=== PATIENT | male | born 1930 | race Caucasian/White ===

== ENCOUNTER 2017-08-22 10:02 | Inpatient (IN) | payer OTHER, MEDICARE ==
[~2017-08-22] VITALS: Ht 180.3 cm; Wt 64.9 kg
[~2017-08-22 10:02] MED LIST: A/B OTIC 54 MG/15 ML OTIC; ACTONEL35 MG PO; AUGMENTIN 875-1 EACH PO; CENTRUM SILVER1 TA1 PO; COUMADIN 6 MG TA6 MG PO; COUMADIN3 M1 PO; DESITIN DIAPER28 GM TOP; DOCUSATE SODIU100 M3 PO; FENTANYL1 EAC2 TOP; FENTANYL25 MCG/HR TOP; PRINIVIL20 MG PO; SANTYL30 GM TOP; SENNA-TIME S T1 EACH PO; TYLENOL325 M1 PO; VITAMIN A & D56.7 GM TOP
--- NOTE | 2017-08-22 10:43 | ED GI/GU/ABDOMINAL COMPLAINT ---
History of Present Illness General Chief Complaint: Nausea, Vomiting, Diarrhea Stated Complaint: DIARRHEA X3 DAYS Source: patient, old records Exam Limitations: no limitations Vital Signs & Intake/Output Vital Signs & Intake/Output Vital Signs Date Time Temp Pulse Resp B/P B/P Pulse O2 O2 Flow FiO2 Mean Ox Delivery Rate 08/22 1025 98 Room Air 08/22 1025 98.4 88 18 131/84 98 Room Air Allergies Coded Allergies: codeine (Intermediate, SHAKING 10/29/15) Reconcile Medications Acetaminophen (Tylenol) 325 MG TABLET 650 MG PO Q8P PRN PAIN SCALE 7-10 ( SEVERE) Cod Liver Oil/Zinc Oxide (Desitin Diaper Rash 40% Paste) 28 GM PASTE..G. 1 KRISTA TOP BID Diaper rash Collagenase Clostridium Hist. (Santyl) 30 GM OINT...G. 1 KRISTA TOP ONCE left lower leg ulcer Docusate Sodium 100 MG CAPSULE 100 MG PO BID CONASTIPATION Fentanyl 25 MCG/HR TDM 1 PATCH TOP Q72H PAIN (Reported) Loperamide HCl (Loperamide) 2 MG TABLET 1 TAB PO Q4 DIARRHEA Risedronate Sodium (Actonel) 35 MG TABLET 1 TAB PO QW BONES (Reported) Sennosides/Docusate Sodium (Senna-Time S Tablet) 8.6 MG-50 MG TABLET 187 MG PO AT BEDTIME PRN CONSTIPATION Vitamin A & D (Vitamin A & D Ointment) 56.7 GM OINT...G. 1 KRISTA TOP BID Diaper rash Warfarin Sodium (Coumadin) 3 MG TABLET 1 TAB PO DAILY POST OP AND AFIB ( Reported) INR BETWEEN 2-3 Triage Note: 87M BIBA FOR LOOSE STOOL X2 DAYS. PT LIVES AT HOME AND HAS VNS. CALLED PMD DR PALOMINO WHO HE BELIEVES SAID TO TAKE MOTRIN (LIKELY IMMODIUM LOOK ALIKE SOUND ALIKE MED) AND STOOLS CONTINUED. HE WAS INCONTINENT AT HOME AND ARRIVES WITH DRIED DIARRHEA DOWN LEGS AND FEET. HAS LEFT LATERAL LOWER LEG WOUND THAT HE SEES DR HOLLIDAY FOR (WOUND X30 YEARS) THAT VN COVER WITH HONEY AND GAUZE. CLEANED AT TIME OF ARRIVAL, MEASURES APPROX [id number] AND INDURATED 2MM. XEROFORM APPLIED WITH DRESSING CHANGE. PT DENIES ANY PAIN OR ABDOMINAL CRAMPING OR N/V AT THIS TIME. DENIES RECTAL PAIN. PT HAS SIGNIFICANT SCROTAL SWELLING THAT IS TENDER TO PALPATION, PT IS UNSURE IF IT IS DIFFERENT IN SIZE FROM BASELINE. NO LESIONS OR ULCERATIONS PRESENT Triage Nurses Notes Reviewed? yes HPI: 87M PMH atrial fibrillation on Coumadin presents with 3 days of loose stools. Patient has been having loose watery stools, 5+/day, for 3 days, called his PCP who advised a medication that the patient heard as Motrin, which he has been taking with no improvement. He has no abdominal pain or cramping, no bloody stool, and is eating well without nausea or vomiting. No recent antibiotics. No sick contacts or recent travel. Lives alone with visiting nurse services. Denies fever, chills, headache, sore throat, chest pain, lightheadedness, palpitations, SOB. Past History Travel History Traveled to [place] past 21 day No Medical History Any Pertinent Medical History? see below for history Neurological: NONE EENT: NONE Cardiovascular: AFIB Respiratory: NONE Gastrointestinal: constipation, L INGUINAL HERNIA Hepatic: NONE Renal: NONE Musculoskeletal: osteoarthritis Psychiatric: NONE Endocrine: NONE Blood Disorders: NONE Cancer(s): NONE SALES TRAINING MANAGER/Reproductive: NONE History of MRSA: No History of VRE: No History of CDIFF: No Surgical History Surgical History: non-contributory Psychosocial History Who do you live with Patient/Self Services at Home None What is your primary language [place]ian Tobacco Use: Never used Family History Family History, If Any: Relation not specified for: *No pertinent family history Hx Contributory? No Review of Systems Review of Systems Constitutional: Reports: no symptoms. EENTM: Reports: no symptoms. Respiratory: Reports: no symptoms. Cardiovascular: Reports: no symptoms. GI: Reports: no symptoms. Genitourinary: Reports: no symptoms. Musculoskeletal: Reports: no symptoms. Skin: Reports: no symptoms. Neurological/Psychological: Reports: no symptoms. Hematologic/Endocrine: Reports: no symptoms. Immunologic/Allergic: Reports: no symptoms. All Other Systems: Reviewed and Negative Physical Exam Physical Exam General Appearance: well developed/nourished, no apparent distress Head: atraumatic, normal appearance Eyes: Bilateral: normal appearance. Ears, Nose, Throat, Mouth: hearing grossly normal, moist mucous membrane Neck: normal inspection, supple, full range of motion Respiratory: normal breath sounds, no respiratory distress Cardiovascular: regular rate/rhythm Gastrointestinal: soft, non-tender Rectal: deferred Male Genitals: edematous scrotum (chronic per patient) Back: normal inspection, normal range of motion Extremities: normal range of motion Neurologic/Psych: awake, alert, oriented x 3, normal mood/affect Skin: 6cm lateral left leg venous stasis ulcer without discharge or erythema Core Measures ACS in differential dx? No Sepsis Present: No Sepsis Focused Exam Completed? No Progress Differential Diagnosis: AAA, AMI, appendicitis, biliary colic, bowel obstruction , colon cancer, cholecystitis, diverticulitis, epididymitis, esophageal varices, gastritis, hepatitis, hernia, hemorrhoids, ischemic bowel, inflamm bowel dis, Thea-Caleb tear, orchitis, pancreatitis, prostatitis, peptic ulcer, PUD/GERD, perforated viscous, pyelonephritis, SBO, STD, testicular torsion, ureterolithiasis, urinary retention, urethritis, UTI/pyelo Plan of Care: Orders Procedure Date/time Status Regular Diet 08/[address] ABD & PELVIS W IV CONTRAST 08/22 1348 Active Patient Data 08/22 1329 Active Isolation 08/[address] in observation 08/22 1314 Active ED Holding Orders 08/22 1314 Active Vital Signs 08/22 1314 Active PROTHROMBIN TIME 08/22 1133 Complete C.DIFFICILE 08/22 1124 Active COMPREHENSIVE METABOLIC PANEL 08/22 1124 Complete CBC WITHOUT DIFFERENTIAL 08/22 112 Complete Laboratory Tests 08/22/17 1155: Anion Gap 11, Estimated GFR > 60, BUN/Creatinine Ratio 20.0, Glucose 107 H, Calcium 8.1 L, Total Bilirubin 1.2, AST 15 L, ALT 16 L, Alkaline Phosphatase 89, Total Protein 7.1, Albumin 3.4 L, Globulin 3.7, Albumin/Globulin Ratio 0.9 L, PT 15.7 H, INR 1.44 H 08/22/17 1135: CBC w Diff NO MAN DIFF REQ, RBC 4.26 L, MCV 98.2 H, MCH 32.2 H, MCHC 32.8 L, RDW 14.4, MPV 8.1, Gran % 86.1 H, Lymphocytes % 5.3 L, Monocytes % 8.5, Eosinophils % 0, Basophils % 0.1, Absolute Granulocytes 11.2 H, Absolute Lymphocytes 0.7 L, Absolute Monocytes 1.1 H, Absolute Eosinophils 0, Absolute Basophils 0 Microbiology 08/22 1124 STOOL: Clostridium difficile Toxin A & B - ORD Initial ED EKG: none Departure Departure Disposition: STILL A PATIENT Condition: Stable Clinical Impression Primary Impression: Diarrhea Referrals: Melba JALLOH,Mane Burgess (PCP/Family) Additional Instructions: Follow up with your PCP. Take Immodium (Loperamide) every few hours when you feel like you are having diarrhea. If you experience bloody stools, fever, chills, worsening diarrhea, abdominal pain, or any other new or worsening symptom, return to ER. Departure Forms: Customer Survey General Discharge Information Prescriptions: Current Visit Scripts Loperamide HCl (Loperamide) 1 TAB PO Q4 #180 TAB Observation Note Spoke With: Rell Ragland MD Patient In: Non-ED OBS Care Area Rationale for Observation: My rational for observation is as follows profuse diarrhea refractory to loperamide with dehydration, leukocytosis, and weakness. Will bring in as observation for IV hydration and symptom control, likely discharge tomorrow if symptoms improve with home health services. Spoke With: Rell Ragland MD Patient In: Non-ED OBS Care Area Rationale for Observation: My rational for observation is as follows profuse diarrhea refractory to loperamide with dehydration, leukocytosis, and weakness. Will bring in as observation for IV hydration and symptom control, likely discharge tomorrow if symptoms improve with home health services.
[2017-08-22] MEDS ORDERED: LOPERAMIDE2 M1 PO (11:14)
[2017-08-22 11:44] LABS: ABSOLUTE BASOPHIL COUNT 0 /CUMM (0.0-0.2); ABSOLUTE EOSINOPHIL COUNT 0 /CUMM (0.0-0.7); ABSOLUTE GRANULOCYTE CT 11.2 /CUMM (1.4-6.5); ABSOLUTE LYMPH COUNT 0.7 /CUMM (1.2-3.4); ABSOLUTE MONOCYTE COUNT 1.1 /CUMM (0.10-0.60); BASOPHIL % 0.1 % (0.0-2.0); EOSINOPHIL % 0 % (0-5); HEMATOCRIT 41.9 % (42-52); MEAN CORPUSCULAR HGB 32.2 PG (27.0-31.0); MEAN CORPUSCULAR HGB CONC 32.8 G/DL (33.0-37.0); MEAN CORPUSCULAR VOLUME 98.2 FL (80.0-94.0); MEAN PLATELET VOLUME 8.1 FL (7.4-10.4); PLATELET COUNT 197 /CUMM (130-400); RBC DISTRIBUTION WIDTH 14.4 % (11.5-14.5); RED BLOOD CELL CT 4.26 /CUMM (4.70-6.10); WHITE BLOOD CELL COUNT 13.1 /CUMM (4.8-10.8)
[2017-08-22 11:58] LABS: GRANULOCYTE % 86.1 % (42.2-75.2)
[2017-08-22 12:14] LABS: PT 15.7 SEC (9.4-12.5)
--- NOTE | 2017-08-22 14:25 | History & Physical ---
Pavel Finley 08/22/17 1416: General Information and HPI MD Statement: I have seen and personally examined RENITA WREN and documented this H&P. The patient is a 87 year old M who presented with a patient stated chief complaint of watery diarrhea for 3 days. 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 Patient states that he started experiencing diarrhea on the night of 08/19/2017. This was associated with night sweats, but no recorded fevers. He cannot recall the number of bowel movements he's had, but states that it has been going through day and night since it started. He denies any nausea and vomiting. He denies any abdominal pain, cramping, no blood in stools. He reports good by mouth intake and good appetite. He called Dr. Reilly's office who advised him to take a medication that the patient hard as ?Motrin, and he has been taking that with no improvement. On review of his EMR, patient was prescribed Augmentin by Dr. Yu on 2017. On further questioning, patient is unsure if he was taking any antibiotic , but does recall medication being delivered to his home during that time. He states he takes care of his medications himself. He does not recall if he takes docusate and other stool softeners on a daily basis, although EMR does suggest so. Patient has been on multiple antibiotics including not limited to, clindamycin, cephalexin since February 2017. No recent weight loss or weight gain. Nonsmoker, no alcohol use, no recreational drug use. Other systems reviewed and negative, exceptions above. Allergies/Medications Allergies: Coded Allergies: codeine (Intermediate, SHAKING 10/29/15) Home Med list Acetaminophen (Tylenol) 325 MG TABLET 650 MG PO Q8P PRN PAIN SCALE 7-10 ( SEVERE) Cod Liver Oil/Zinc Oxide (Desitin Diaper Rash 40% Paste) 28 GM PASTE..G. 1 KRISTA TOP BID Diaper rash Collagenase Clostridium Hist. (Santyl) 30 GM OINT...G. 1 KRISTA TOP ONCE left lower leg ulcer Docusate Sodium 100 MG CAPSULE 100 MG PO BID CONASTIPATION Fentanyl 25 MCG/HR TDM 1 PATCH TOP Q72H PAIN (Reported) Loperamide HCl (Loperamide) 2 MG TABLET 1 TAB PO Q4 DIARRHEA Risedronate Sodium (Actonel) 35 MG TABLET 1 TAB PO QW BONES (Reported) Sennosides/Docusate Sodium (Senna-Time S Tablet) 8.6 MG-50 MG TABLET 187 MG PO AT BEDTIME PRN CONSTIPATION Vitamin A & D (Vitamin A & D Ointment) 56.7 GM OINT...G. 1 KRISTA TOP BID Diaper rash Warfarin Sodium (Coumadin) 3 MG TABLET 1 TAB PO DAILY POST OP AND AFIB ( Reported) INR BETWEEN 2-3 Past History Travel History Traveled to [place] past 21 day No Medical History Neurological: NONE EENT: NONE Cardiovascular: AFIB Respiratory: NONE Gastrointestinal: constipation, L INGUINAL HERNIA Hepatic: NONE Renal: NONE Musculoskeletal: osteoarthritis Psychiatric: NONE Endocrine: NONE Blood Disorders: NONE Cancer(s): NONE CLINICAL PHYSICIAN ASSISTANT/Reproductive: NONE History of MRSA: No History of VRE: No History of CDIFF: No Surgical History Surgical History: non-contributory Past Family/Social History Family History Relations & Conditions if any Relation not specified for: *No pertinent family history Psychosocial History Who Do You Live With? self Services at Home: None Primary Language: Citizen Of [place] Functional Ability ADLs Independent: dressing, eating, toileting, bathing. Ambulation: cane IADLs Independent: shopping, housework, finances, food prep, telephone, transportation , medication admin. Review of Systems Review of Systems Constitutional: Reports: see HPI. Exam & Diagnostic Data Last 24 Hrs of Vital Signs/I&O Vital Signs Date Time Temp Pulse Resp B/P B/P Pulse O2 O2 Flow FiO2 Mean Ox Delivery Rate 08/22 1025 98 Room Air 08/22 1025 98.4 88 18 131/84 98 Room Air Intake & Output 08/22 1600 08/22 0800 08/22 0000 Intake Total Output Total Balance Patient 143 lb Weight Weight Reported by Patient Measurement Method Physical Exam General Appearance Alert, Oriented X3, Cooperative Skin No Rashes, No Breakdown HEENT Atraumatic, PERRLA, EOMI Neck Supple Cardiovascular Regular Rate, Normal S1, Normal S2 Lungs Clear to Auscultation, Normal Air Movement Abdomen Normal Bowel Sounds, Soft, tenderness to palpation in lower abdomen Extremities No Clubbing, No Cyanosis, left steele ulcer secondary to chronic venous stasis in bandage. Last 24 Hrs of Labs/Joshua: Laboratory Tests 08/22/17 1155: Anion Gap 11, Estimated GFR > 60, BUN/Creatinine Ratio 20.0, Glucose 107 H, Calcium 8.1 L, Total Bilirubin 1.2, AST 15 L, ALT 16 L, Alkaline Phosphatase 89, Total Protein 7.1, Albumin 3.4 L, Globulin 3.7, Albumin/Globulin Ratio 0.9 L, PT 15.7 H, INR 1.44 H 08/22/17 1135: CBC w Diff NO MAN DIFF REQ, RBC 4.26 L, MCV 98.2 H, MCH 32.2 H, MCHC 32.8 L, RDW 14.4, MPV 8.1, Gran % 86.1 H, Lymphocytes % 5.3 L, Monocytes % 8.5, Eosinophils % 0, Basophils % 0.1, Absolute Granulocytes 11.2 H, Absolute Lymphocytes 0.7 L, Absolute Monocytes 1.1 H, Absolute Eosinophils 0, Absolute Basophils 0 Microbiology 08/22 1402 STOOL: Stool Culture - ORD 08/22 1124 STOOL: Clostridium difficile Toxin A & B - ORD Assessment/Plan Assessment: 87-year-old gentleman recently on Augmentin for left leg ulcer here with 3 day history of persistent watery diarrhea with tender abdomen. WBC 13.1 with 86% granulocytes. Baseline creatinine 0.6 (BMI 19.4), with creatinine now 1.0. Albumin 3.4. INR 1.44. 1. Watery diarrhea. Suspect Nonsevere CDI. Symptoms of CDI typically occur in the setting of antibiotic therapy; mostly within one month of antibiotic therapy. Recent exposure to Augmentin ?07/27/17-08/03/17. Chronic use of abx - clinda, cephalexin etc. for lower extremity non healing ulcer. Physical examination revealed lower abdominal tenderness. Check C. difficile toxin. Empiric contact precautions. Recommend empiric treatment with by mouth vancomycin for C. difficile colitis, given high suspicion. CT abdomen with IV contrast. Gentle fluid hydration. Consider holding loperamide, although evidence for and against its use is equivocal. Anti-emetics when necessary. 2. Atrial fibrillation on Coumadin. Coumadin tonight. Check INR in the a.m. 3. Left leg ulcer. Dressings as ordered. Wound care consult in a.m. Home medication reconciliation. DNR/DNI Warfarin as DVT prophylaxis. Diet as tolerated. As Ranked By This Provider Problem List: 1. Diarrhea Core Measures/Misc (01/03) Acute Coronary Syndrome ACS Diagnosis: No Congestive Heart Failure Congestive Heart Failure Diagnosis No Cerebrovascular Accident CVA/TIA Diagnosis: No VTE (View Protocol) VTE Risk Factors No risk factors No Mechanical VTE Prophylaxis d/t N/A MechProphylax Ordered No VTE Pharm Prophylaxis d/t NA PharmProphylax ordered Sepsis (View protocol) Sepsis Present: No Rell Ragland 08/22/17 1538: Attending MD Review Statement Attending Statement Attending MD Statement: examined this patient, discuss w/resident/PA/CORNER CUTTER, agreed w/resident/PA/CORNER CUTTER, discussed with family, reviewed EMR data (avail), discussed with nursing, discussed with case mgmt, reviewed images, amended to note Attending Assessment/Plan: Patient with above mentioned pmh comes with diarrhea in setting of recent antibiotic use and ct findings worrsiome for diffuse colitis possible c diff infection or possible antibitoic induced diarrhea is placed on observation status. Keep him NPO, IVF, PO vancomycin, serial abdomne exams. Resume home meds , monitor INR.
--- NOTE | 2017-08-22 15:07 | CT SCAN REPORT ---
EXAMINATION: CT ABDOMEN AND PELVIS WITH CONTRAST CLINICAL INFORMATION: Fever. Diarrhea. Recent antibiotic use. Question colitis/diverticulitis. COMPARISON: CT scan of the pelvis dated 02/22/2016. CT scan of the abdomen and pelvis dated 10/29/2015. TECHNIQUE: Multidetector CT volumetric acquisition of the abdomen and pelvis was performed after the administration of 95 and mL of intravenous Optiray 320. The data set was reformatted in the sagittal and coronal planes and reviewed on an independent workstation. DLP: 458.16 mGy-cm. FINDINGS: LOWER CHEST: Mild bilateral dependent atelectasis in the lower lobes. Four-chamber dilatation of the heart is seen, incompletely included. LIVER, GALLBLADDER, BILIARY TREE: Liver normal size and attenuation. No focal cystic or solid mass or intra-or extrahepatic ductal dilatation. Hepatic and portal veins patent. Gallbladder partially distended and within normal limits. PANCREAS: The pancreas is diffusely atrophic with fatty infiltration seen. No ductal dilatation, mass, or surrounding stranding. SPLEEN: Normal size and appearance. 0.7 cm accessory splenule in the splenic hilar region again seen, unchanged. Splenic vein patent. ADRENAL GLANDS AND KIDNEYS: Adrenal glands normal. Kidneys bilaterally symmetric in size and function. There is an exophytic 3.1 cm diameter low-attenuation mass in the posterior mid left kidney (series 2, image 29) with mean attenuation values of 22 Hounsfield units, larger compared to 2.7 cm diameter previously. This finding may represent a hyperdense cyst that is mildly larger compared to 10/29/2015. No other prominent renal mass, hydronephrosis, nephrolithiasis or perinephric stranding. URETERS AND BLADDER: Ureters decompressed and within normal limits. Bladder partially distended. As seen previously, there is a 1.6 x 1.3 cm calcification in the mid bladder base, consistent with a bladder calculus. PELVIC ORGANS: The prostate gland is enlarged and heterogeneous, measuring 5.8 x 5.0 x 6.0 cm. Coarse internal calcifications is seen. Seminal vesicles bilaterally are symmetric and unremarkable. GASTROINTESTINAL TRACT: There is diffuse wall thickening and mucosal hyperenhancement seen involving the entire rectosigmoid colon with surrounding mesenteric and omental fat stranding and edema noted. Findings are new when compared to the prior CT scans and are consistent with a diffuse colitis. No evidence of bowel obstruction or perforation is seen. No pneumatosis is noted. No focal abscess collection is noted. Of note, there is a large direct left inguinal hernia, containing a large portion of the distal descending and the sigmoid colon as well as other small bowel loops and mesentery. No evidence of bowel incarceration or obstruction within the hernia sac is seen. The size of the left inguinal hernia similar to the previous exam. The small bowel loops are completely decompressed and unremarkable. ABDOMINAL WALL: There is a small fat-containing umbilical hernia. LYMPHOVASCULAR STRUCTURES: Distal descending and abdominal aorta ectatic without evidence of aneurysm formation. Mild atherosclerotic calcifications of the aorta is seen. There is dilatation of the iliac arteries. No periaortic collections. No abdominal or pelvic adenopathy or free fluid collection. BONES: A right hip compression screw is seen. IMPRESSION: 1. Diffuse wall thickening, mucosal hyperemia, and mesenteric/omental fat stranding and edema is seen involving the entire rectosigmoid colon, consistent with a diffuse colitis. In the setting of recent antibiotic use, antibiotic associated colitis or pseudomembranous colitis are in the differential. Other etiologies could include infectious or inflammatory processes. Clinical correlation requested. 2. Large direct left inguinal hernia, containing small and large bowel loops and mesentery. Findings are similar to the previous exam. No evidence of bowel obstruction or incarceration is seen. 3. Large bladder calculus, unchanged. No renal calculi or evidence of obstructive uropathy. 4. Enlarged heterogeneous prostate gland. 5. Small fat-containing umbilical hernia. 6. Enlarged heart.
[2017-08-22 17:45] VITALS: BP 108/76
[2017-08-22 21:28] VITALS: BP 110/78
[2017-08-23 05:48] VITALS: BP 100/62
--- NOTE | 2017-08-23 06:40 | PN- Housestaff ---
See Addendum Subjective Follow-up For: Colitis Subjective: No overnight events. Patient had one bowel movement last night that was normal. He had no fevers, chills, chest pain, shortness of breath, abdominal pain, nausea, or vomiting. Review of Systems Constitutional: Reports: no symptoms. EENTM: Reports: no symptoms. Cardiovascular: Reports: no symptoms. Respiratory: Reports: no symptoms. Gastrointestinal: Reports: see HPI. Genitourinary: Reports: no symptoms. Musculoskeletal: Reports: no symptoms. Skin: Reports: no symptoms. Neurological/Psychological: Reports: no symptoms. Hematologic/Endocrine: Reports: no symptoms. Immunologic/Allergic: Reports: no symptoms. Objective Last 24 Hrs of Vital Signs/I&O Vital Signs Date Time Temp Pulse Resp B/P B/P Pulse O2 O2 Flow FiO2 Mean Ox Delivery Rate 08/23 0548 97.9 93 22 100/62 94 Room Air / 2128 98.2 88 19 110/78 94 Room Air / 1745 98.0 88 19 108/76 94 Room Air Room Air / 1659 79 18 124/78 96 Room Air 05/ 1025 98 Room Air / 1025 98.4 88 18 131/84 98 Room Air Intake & Output 08/23 0800 / 0000 08/22 1600 Intake Total 160 Output Total 150 100 Balance -150 60 Intake, IV 160 Intake, Oral 0 Number 1 1 Bowel Movements Output, Urine 150 100 Patient 64.864 kg 64.864 kg Weight Weight Reported by Patient Measurement Method Physical Exam General Appearance: Alert, Oriented X3, Cooperative, No Acute Distress Cardiovascular: Regular Rate, Normal S1, Normal S2 Lungs: Clear to Auscultation Abdomen: Normal Bowel Sounds, Soft, No Tenderness Extremities: Left lower extremity ulcer Current Medications: Current Medications Sig/Lew Start time Last Medication Dose Route Stop Time Status Admin Acetaminophen 650 MG Q8P PRN 08/22 1415 AC PO Loperamide HCl 2 MG ONE ONE 08/22 1045 DC 05/ PO 08/22 1046 1102 Ondansetron HCl 4 MG Q8P PRN / 1415 AC IV Sodium Chloride 1,000 ML .[id number] 08/22 1415 DC / IV 08/23 0334 2202 Sodium Chloride 1,000 ML BOLUS ONE 05/06 1145 DC 05/ IV / 1344 1130 Vancomycin HCl 250 MG Q6H 08/22 2200 AC 05/ PO 0424 Vancomycin HCl 250 MG Q6 / 1530 DC / PO 1627 Vitamin A/Vitamin D 1 KRISTA BID 08/22 2100 AC TOP Warfarin Sodium 3 MG 1700 / 1700 DC 05/ PO / 2359 1627 Zinc Oxide 1 KRISTA BID 08/22 2100 AC TOP Last 24 Hrs of Lab/Joshua Results Last 24 Hrs of Labs/Mics: Laboratory Tests 08/23/17 0145: Urinalysis MOD H, Urine Color YEL, Urine Clarity HAZY H, Urine pH 5.5, Ur Specific [place] 1.025, Urine Protein 30 H, Urine Ketones 15 H, Urine Nitrite NEG, Urine Bilirubin NEG@ICTO, Urine Urobilinogen 0.2, Ur Leukocyte Esterase NEG , Ur Microscopic SEDIMENT EXAMINED, Urine RBC 1-3, Urine WBC 1-3 H, Ur Epithelial Cells FEW, Urine Bacteria RARE H, Granular Casts 1-3 H, Urine Mucus FEW, Urine Hemoglobin TRACE-INTACT H, Urine Glucose NEG 08/22/17 1155: Anion Gap 11, Estimated GFR > 60, BUN/Creatinine Ratio 20.0, Glucose 107 H, Calcium 8.1 L, Total Bilirubin 1.2, AST 15 L, ALT 16 L, Alkaline Phosphatase 89, Total Protein 7.1, Albumin 3.4 L, Globulin 3.7, Albumin/Globulin Ratio 0.9 L, PT 15.7 H, INR 1.44 H 08/22/17 1135: CBC w Diff NO MAN DIFF REQ, RBC 4.26 L, MCV 98.2 H, MCH 32.2 H, MCHC 32.8 L, RDW 14.4, MPV 8.1, Gran % 86.1 H, Lymphocytes % 5.3 L, Monocytes % 8.5, Eosinophils % 0, Basophils % 0.1, Absolute Granulocytes 11.2 H, Absolute Lymphocytes 0.7 L, Absolute Monocytes 1.1 H, Absolute Eosinophils 0, Absolute Basophils 0 Microbiology 08/23 444 STOOL: Stool Culture - RECD 08/23 444 STOOL: Clostridium difficile Toxin A & B - RECD Assessment/Plan Assessment: Mr. Osuna is a 87-year-old gentleman recently on Augmentin for left leg ulcer here with 3 day history of persistent watery diarrhea with tender abdomen. Problem list: 1. Colitis 2. Left lower extremity ulcer 3. Scrotal edema #Colitis: Suspect Nonsevere CDI. Patient had recent exposure to antibiotics and has chronic use of antibiotics for left lower extremity nonhealing ulcer. CT revealed colitis. He has had one bowel movement but was not diarrhea since admission. -Check C. difficile toxin. -empiric treatment with by mouth vancomycin for C. difficile colitis, given high suspicion. -Antiemetics as necessary -PT consult -ADAT #Left leg ulcer: Chronic wound. -Dressings as ordered -Wound care consult #Scrotal edema: Likely secondary to fluids. -Reduce fluid rate -Elevate scrotum -Consider ultrasound if pain develops or persists. #Chronic medical problems: -Daily INR, dose warfarin -Continue other medications DVT prophylaxis with warfarin liquid diet DNR/DNI Problem List: 1. Diarrhea Pain Ratin Pain Location: no Pain Goal: Remain pain free Pain Plan: see a/p Tomorrow's Labs & Rationales: no
[2017-08-23 08:48] LABS: PT 16.3 SEC (9.4-12.5)
[2017-08-23 08:58] LABS: ABSOLUTE BASOPHIL COUNT 0 /CUMM (0.0-0.2); ABSOLUTE EOSINOPHIL COUNT 0 /CUMM (0.0-0.7); ABSOLUTE GRANULOCYTE CT 12.7 /CUMM (1.4-6.5); ABSOLUTE MONOCYTE COUNT 1.5 /CUMM (0.10-0.60); BASOPHIL % 0.1 % (0.0-2.0); EOSINOPHIL % 0.1 % (0-5); MEAN CORPUSCULAR HGB 32.4 PG (27.0-31.0); MEAN CORPUSCULAR VOLUME 98.4 FL (80.0-94.0); MEAN PLATELET VOLUME 8.4 FL (7.4-10.4); PLATELET COUNT 182 /CUMM (130-400); RBC DISTRIBUTION WIDTH 14.6 % (11.5-14.5); RED BLOOD CELL CT 3.73 /CUMM (4.70-6.10); WHITE BLOOD CELL COUNT 15.3 /CUMM (4.8-10.8)
[2017-08-23 09:19] LABS: HEMATOCRIT 36.7 % (42-52)
[2017-08-23 10:09] LABS: GRANULOCYTE % 83.2 % (42.2-75.2)
--- NOTE | 2017-08-23 13:57 | ULTRASOUND REPORT ---
EXAMINATION: US SCROTUM CLINICAL INFORMATION: Swollen left testes. Night sweats reported recently. Presumptive diagnosis of left testes varicocele. Rule out tumor. COMPARISON: CT scan of the abdomen and pelvis dated 08/22/2017. TECHNIQUE: A sonogram of the scrotum was performed assessing thomas-scale appearance and color Doppler flow. Spectral analysis and Doppler interrogation was performed. FINDINGS: RIGHT: Right testicle measures 3.8 x 2.7 x 2.7 cm, volume 19.7 mL. Parenchymal echotexture is normal. No focal testicular parenchymal lesions are visualized. Normal symmetric intratesticular flow is visualized. Right epididymal head is normal in size. There are small epididymal cysts, measuring up to 0.4 cm in diameter. Trace right hydrocele is seen. No right varicocele is seen. LEFT: Left testicle measures 4.5 x 2.4 x 3.0 cm, volume 23.0 mL. Parenchymal echotexture is normal. No focal testicular parenchymal lesions are visualized. Normal symmetric intratesticular flow is visualized. Left epididymal head is normal in size. Trace left hydrocele is seen. No varicocele is seen. As seen on the CT there is diffuse thickening of the sigmoid colonic wall, similar to the previous CT scan, consistent with a diffuse colitis previously demonstrated. IMPRESSION: 1. The testicles and epididymides bilaterally are largely unremarkable except for a few tiny right epididymal cysts. 2. Trace bilateral hydroceles. No evidence of varicoceles. 3. Large left scrotal hernia, containing nonobstructed loops of small and large bowel, including a segment of the abnormally thickened sigmoid colon, previously demonstrated to represent part of a diffuse colitis.
--- NOTE | 2017-08-23 13:57 | Discharge Summary ---
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 Patient has been on multiple antibiotics including and not limited to, clindamycin, cephalexin since February 2017. 1. Diarrhea secondary to C. difficile -mild CDI was suspected upon admission, especially given recent antibiotic use. Patient was empirically started on PO Vanco. C. Diff toxin result was positive on 08/23/17. His CT scan also revealed pseudomembranous colitis. We gave total 10 day course of PO Vancomycin 125 milligrams every 6 hrly for C. Diff colitis (08/23/2017 -09/01/2017 -total 40 doses ) in addition to Cholestyramine to form stools. 2. Left scrotal swelling -left tetsticular ultrasound showed tiny right-sided epididymal cyst, bilateral hydrocele. There was a large left scrotal hernia which was containing nonobstructed loops of small and large bowel including a segment of abnormally thickened sigmoid colon.we followed it conservatively. Advised to follow-up with general surgery as an outpatient. 2. Atrial fibrillation on Coumadin -we continued Coumadin with goal of INR 2-3. 3. Left leg ulcer - Wound consult was obtained. Patient was followed by Dr. Hameed. He had I&D on 08/27/2017 and wound VAC was placed. The wound culture grew multiple organism, including Pseudomonas, Klebsiella, enterococcus, staph coagulase-negative. We obtained consult from infectious disease specialist and started on injection ceftazidime. According to infectious disease the significance of culture was unclear and advised to follow off antibiotic. 4.Pain management - Patient was complaining of pain in the left foot and Tylenol was not effective so he advised to take tablet tramadol 25 mg as needed and follow-up with the primary care. 5. Bladder calculus CT scan, an exophytic mass on left kidney was also noted. A urology evaluation has been obtained which remains pending at this time. According to Dr. Cammalleri/urologist patient may need cystoscopy after he recovered from the colitis. He may need subsequent hospitalization for laser lithotripsy of bladder stone. He should follow up with Urology as outpatient. 6. Small exophytic mass in mid left kidney -advised to follow-up with PCP for further evaluation and management as an outpatient Allergies: Coded Allergies: codeine (Intermediate, SHAKING 10/29/15) Significant Procedures: 12/28/2017 - 1 open incision and drainage deep to the D fashion with exposure of the extensor tendon and tendon sheath multiple sites left ankle 2 negative pressure wound therapy left ankle 3 intraoperative administration of ankle block anesthesia 4 excisional debridement Disposition Summary Disposition Principal Diagnosis: C. Diff colitis Chronic nonhealing ulceration of left ankle -underwent debridement and negative pressure wound therapy(on 08/27/2017) Additional Diagnosis: Left scrotal swelling Left exophytic kidney mass Discharge Disposition: SNF Discharge Instructions General Discharge Information Code Status: Do Not Resucitate/Intubat Patient's Diet: Regular diet. Patient's Activity: As tolerated Follow-Up Instructions/Appts: Please follow up with PCP as an outpatient. Please follow up with Urologist as an outpatient. Please follow-up with Dr. Morrison for further evaluation and management of the left foot wound VAC. Medications at Discharge Discharge Medications: Stop taking the following medications: Docusate Sodium (Docusate Sodium) 100 MG CAPSULE ORAL TWICE DAILY Qty = 30 Sennosides/Docusate Sodium (Senna-Time S Tablet) 8.6 MG-50 MG TABLET ORAL AT BEDTIME as needed for CONSTIPATION Qty = 30 Loperamide HCl (Loperamide) 2 MG TABLET ORAL Every 4 hours Qty = 180 Continue taking these medications: Risedronate Sodium (Actonel) 35 MG TABLET 1 Tablet ORAL Once a Week Comments: PT REPORTS TAKING ON SAT OR SUN Fentanyl (Fentanyl) 25 MCG/HR TDM 1 PATCH On the skin Q72H Collagenase Clostridium Hist. (Santyl) 30 GM OINT...G. 1 Application On the skin GIVE ONCE Days = 30 Comments: NOT GIVEN IN THE HOSPITAL Acetaminophen (Tylenol) 325 MG TABLET 650 Milligram ORAL EVERY 8 HOURS NEEDED as needed for PAIN SCALE 7-10 ( SEVERE) Days = 14 Comments: Last Taken: 08/30/17 Time: 0345 AM Vitamin A & D (Vitamin A & D Ointment) 56.7 GM OINT...G. 1 Application On the skin TWICE DAILY Days = 30 Comments: Last Taken:08/31/17 Time:0800 Cod Liver Oil/Zinc Oxide (Desitin Diaper Rash 40% Paste) 28 GM PASTE..G. 1 Application On the skin TWICE DAILY Days = 30 Comments: NOT GIVEN IN THE HOSPITAL Warfarin Sodium (Coumadin) 3 MG TABLET 1 Tablet ORAL DAILY Qty = 30 Instructions: INR BETWEEN 2-3 Comments: Last Taken: 08/31/17 Time: 1145 SM 4MG GIVEN Start taking the following new medications: Vancomycin HCl (Vancomycin HCl) 900 MCG/MG (NOT LESS THAN, SKILLED NURSING) POWDER 125 Milligram ORAL Q6H Days = 2 No Refills Comments: Last Taken:08/31/17 Time:1015 AM Cholestyramine/Aspartame (Cholestyramine Light Packet) 4 GRAM POWD.PACK 1 Packet ORAL [phone] Qty = 2 No Refills Comments: Last Taken:08/31/17 Time:0745 AM Tramadol HCl (Tramadol HCl) 50 MG TABLET 0.5 Milligram ORAL EVERY SIX HOURS NEEDED as needed for Pain Qty = 10 No Refills Comments: Last Taken:08/31/17 Time:1115 AM Copies To: Melba JALLOH,Mane Burgess Attending Review Statement Documenting Attending: Aline Bernal MD
[2017-08-23 14:13] VITALS: BP 112/60
--- NOTE | 2017-08-23 16:04 | PN-Observation ---
Observation Note Observation Note _ I have personally examined RENITA WREN. him disposition is uncertain at this time. Before a determination can be made, he requires continued observation for the following reasons: 87-year-old gentleman recently on Augmentin for left leg ulcer here with 3 day history of persistent watery diarrhea with tender abdomen. To be placed in obs. Assessment/Plan Medical Assessment: 87-year-old gentleman recently on Augmentin for left leg ulcer here with 3 day history of persistent watery diarrhea with tender abdomen. WBC 13.1 with 86% granulocytes. Baseline creatinine 0.6 (BMI 19.4), with creatinine now 1.0. Albumin 3.4. INR 1.44. 1. Watery diarrhea. Suspect Nonsevere CDI. Symptoms of CDI typically occur in the setting of antibiotic therapy; mostly within one month of antibiotic therapy. Recent exposure to Augmentin ?07/27/17-08/03/17. Chronic use of abx - clinda, cephalexin etc. for lower extremity non healing ulcer. Physical examination revealed lower abdominal tenderness. Check C. difficile toxin. Empiric contact precautions. Recommend empiric treatment with by mouth vancomycin for C. difficile colitis, given high suspicion. CT abdomen with IV contrast. Gentle fluid hydration. Consider holding loperamide, although evidence for and against its use is equivocal. Anti-emetics when necessary. 2. Atrial fibrillation on Coumadin. Coumadin tonight. Check INR in the a.m. 3. Left leg ulcer. Dressings as ordered. Wound care consult in a.m. Home medication reconciliation. DNR/DNI Warfarin as DVT prophylaxis. Diet as tolerated. Problem List: 1. Diarrhea Plan: As above. Subjective Review of Systems Constitutional: Reports: see HPI. Objective Last 24 Hrs of Vital Signs/I&O Vital Signs Date Time Temp Pulse Resp B/P B/P Pulse O2 O2 Flow FiO2 Mean Ox Delivery Rate 08/23 1413 97.8 89 18 112/60 98 Room Air 08/23 0548 97.9 93 22 100/62 94 Room Air 08/22 2128 98.2 88 19 110/78 94 Room Air 08/22 1745 98.0 88 19 108/76 94 Room Air Room Air 08/22 1659 79 18 124/78 96 Room Air Intake & Output 08/23 1600 08/23 0800 08/23 0000 Intake Total 1205 160 Output Total 300 150 100 Balance 905 -150 60 Intake, IV 725 160 Intake, Oral 480 0 Number 3 1 1 Bowel Movements Output, Urine 300 150 100 Patient 143 lb Weight Physical Exam General Appearance: Alert, Oriented X3
--- NOTE | 2017-08-23 17:40 | ULTRASOUND REPORT ---
EXAMINATION: US RETROPERITONEAL COMPLETE (RENAL) CLINICAL INFORMATION: Renal mass.. COMPARISON: CT images of the abdomen from 08/22/2017 TECHNIQUE: Real-time imaging of the kidneys and bladder. FINDINGS: RIGHT KIDNEY: 9.8 x 5.4 x 4.3 cm (SAG x AP x TRV). The renal cortical thickness and echotexture are well preserved. No evidence of focal parenchymal lesion, nephrolithiasis or hydronephrosis. LEFT KIDNEY: 10.2 x 4.7 x 3.6 cm (SAG x AP x TRV). The renal cortical thickness and echotexture are well preserved. No nephrolithiasis or hydronephrosis. There is a 3 cm simple cortical cyst of the interpolar region of the left kidney. BLADDER: The urinary bladder is distended to an estimated volume of 230 mL and, after voiding, there is a residual of 60 mL. Within the bladder, a mobile calculus measures 2.1 x 1.3 x 2.2 cm. The right and left ureteral jets were seen. Prominent prostate gland measures approximately 5.3 x 3.8 x 3.7 cm. IMPRESSION: 1. No evidence of nephrolithiasis or hydronephrosis. 2. Benign, 3 cm cortical cyst of the mid left kidney. 3. Prostatomegaly. 4. A solitary, mobile calculus is present within the urinary bladder.
--- NOTE | 2017-08-23 19:58 | Cons- Urology ---
General Information and HPI Consulting Request Date of Consult: 08/23/17 Requested By: Aline Bernal MD Reason for Consult: Scrotal enlargement Source of Information: patient, old records Exam Limitations: no limitations History of Present Illness: 87 year old male admitted with watery diarrhea after tx with abx due to a leg ulcer. Subsequently confirmed to have C. diff colitis. On exam noted to have L scrotal enlargement. CT scan shows findings c/w colitis and a large LIH with bowel extending into the scrotum. Also incidental finding is of a 2.5 cm bladder stone. Scrotal ultrasound confirms the absence of hydrocele or testicular mass. He denies any significant voiding sx's and admission U/A shows 1-3 wbc, 1-3 rbc and rare bacteria. Allergies/Medications Allergies: Coded Allergies: codeine (Intermediate, SHAKING 10/29/15) Home Med List: Acetaminophen (Tylenol) 325 MG TABLET 650 MG PO Q8P PRN PAIN SCALE 7-10 ( SEVERE) Cod Liver Oil/Zinc Oxide (Desitin Diaper Rash 40% Paste) 28 GM PASTE..G. 1 KRISTA TOP BID Diaper rash Collagenase Clostridium Hist. (Santyl) 30 GM OINT...G. 1 KRISTA TOP ONCE left lower leg ulcer Docusate Sodium 100 MG CAPSULE 100 MG PO BID CONASTIPATION Fentanyl 25 MCG/HR TDM 1 PATCH TOP Q72H PAIN (Reported) Loperamide HCl (Loperamide) 2 MG TABLET 1 TAB PO Q4 DIARRHEA Risedronate Sodium (Actonel) 35 MG TABLET 1 TAB PO QW BONES (Reported) Sennosides/Docusate Sodium (Senna-Time S Tablet) 8.6 MG-50 MG TABLET 187 MG PO AT BEDTIME PRN CONSTIPATION Vitamin A & D (Vitamin A & D Ointment) 56.7 GM OINT...G. 1 KRISTA TOP BID Diaper rash Warfarin Sodium (Coumadin) 3 MG TABLET 1 TAB PO DAILY POST OP AND AFIB ( Reported) INR BETWEEN 2-3 Current Medications: Current Medications Sig/Lew Start time Last Medication Dose Route Stop Time Status Admin Acetaminophen 650 MG Q8P PRN 08/22 1415 AC PO Dextrose/Sodium 1,000 ML Q13H 08/23 1030 AC Chloride IV Dextrose/Sodium 1,000 ML Q9H 08/23 0645 DC 08/23 Chloride IV 0745 Ondansetron HCl 4 MG Q8P PRN 08/22 1415 AC IV Patient Medication 1 ED ONE ONE 08/23 1545 DC Teaching ED 08/23 1546 Sodium Chloride 1,000 ML .[id number] 08/22 1415 DC 08/22 IV 08/23 0334 2202 Vancomycin HCl 125 MG Q6H / 1600 AC 08/23 PO 1631 Vancomycin HCl 250 MG Q6H / 2200 DC 08/23 PO 0911 Vancomycin HCl 250 MG Q6 / 1530 DC 08/22 PO 1627 Vitamin A/Vitamin D 1 KRISTA BID 08/22 2100 AC 08/23 TOP 0913 Warfarin Sodium 4 MG COUMADIN 1700 ONE 08/23 1700 DC / PO 08/23 1701 1631 Warfarin Sodium 3 MG 1700 / 1700 DC / PO / 2359 1627 Zinc Oxide 1 KRISTA BID 08/22 2100 AC 08/23 TOP 0914 Past History Medical History Blood Transfusion Hx: Yes Neurological: NONE EENT: NONE Cardiovascular: AFIB Respiratory: NONE Gastrointestinal: constipation, L INGUINAL HERNIA Hepatic: NONE Renal: NONE Musculoskeletal: osteoarthritis Psychiatric: NONE Endocrine: NONE Blood Disorders: NONE Cancer(s): NONE KILN TENDER/Reproductive: NONE Surgical History Pertinent Surgical History: non-contributory Family History Relations & Conditions If Any: Relation not specified for: *No pertinent family history Psychosocial History Where Do You Live? Home Who Do You Live With? self Services at Home: None Primary Language: Zimbabwean Smoking Status: Never Smoked Functional Ability ADLs Independent: dressing, eating, toileting, bathing. Ambulation: cane IADLs Independent: shopping, housework, finances, food prep, telephone, transportation , medication admin. Exam & Diagnostic Data Vital Signs and I&O Vital Signs Date Time Temp Pulse Resp B/P B/P Pulse O2 O2 Flow FiO2 Mean Ox Delivery Rate 08/23 1413 97.8 89 18 112/60 98 Room Air 08/23 0548 97.9 93 22 100/62 94 Room Air 08/228 98.2 88 19 110/78 94 Room Air Intake & Output 08/23 1600 08/23 0800 05/07 0000 05/ 1600 08/22 0800 / 0000 Intake Total 1205 160 Output Total 300 150 100 Balance 905 -150 60 Intake, IV 725 160 Intake, Oral 480 0 Number 3 1 1 Bowel Movements Output, Urine 300 150 100 Patient 143 lb 143 lb Weight Weight Reported by Patient Measurement Method Back: No CVA tenderness Abd: soft and no significant tenderness Genitalia: Large L inguinal hernia extending into scrotum Laboratory Tests 08/23 08/23 0605 0145 Chemistry Sodium (137 - 145 mmol/L) 141 Potassium (3.5 - 5.1 mmol/L) 3.6 Chloride (98 - 107 mmol/L) 108 H Carbon Dioxide (22 - 30 mmol/L) 18 L Anion Gap (5 - 16) 14 BUN (9 - 20 mg/dL) 18 Creatinine (0.7 - 1.2 mg/dL) 0.8 Estimated GFR (>60 ml/min) > 60 BUN/Creatinine Ratio (7 - 25 %) 22.5 Coagulation PT (9.4 - 12.5 SEC) 16.3 H INR (0.90 - 1.17) 1.49 H Hematology CBC w Diff NO MAN DIFF REQ WBC (4.8 - 10.8 /CUMM) 15.3 H RBC (4.70 - 6.10 /CUMM) 3.73 L Hgb (14.0 - 18.0 G/DL) 12.1 L Hct (42 - 52 %) 36.7 L MCV (80.0 - 94.0 FL) 98.4 H MCH (27.0 - 31.0 PG) 32.4 H MCHC (33.0 - 37.0 G/DL) 33.0 RDW (11.5 - 14.5 %) 14.6 H Plt Count (130 - 400 /CUMM) 182 MPV (7.4 - 10.4 FL) 8.4 Gran % (42.2 - 75.2 %) 83.2 H Lymphocytes % (20.5 - 51.1 %) 6.8 L Monocytes % (1.7 - 9.3 %) 9.8 H Eosinophils % (0 - 5 %) 0.1 Basophils % (0.0 - 2.0 %) 0.1 Absolute Granulocytes (1.4 - 6.5 /CUMM) 12.7 H Absolute Lymphocytes (1.2 - 3.4 /CUMM) 1.0 L Absolute Monocytes (0.10 - 0.60 /CUMM) 1.5 H Absolute Eosinophils (0.0 - 0.7 /CUMM) 0 Absolute Basophils (0.0 - 0.2 /CUMM) 0 Urines Urinalysis MOD H Urine Color (YEL,AMB,STR) YEL Urine Clarity (CLEAR) HAZY H Urine pH (5.0 - 8.0) 5.5 Ur Specific [place] (1.001 - 1.035) 1.025 Urine Protein (NEG,<30 MG/DL) 30 H Urine Ketones (NEG) 15 H Urine Nitrite (NEG) NEG Urine Bilirubin (NEG) NEG@ICTO Urine Urobilinogen (0.1 - 1.0 EU/dl) 0.2 Ur Leukocyte Esterase (NEG) NEG Ur Microscopic SEDIMENT EXAMINED Urine RBC (0 - 5 /HPF) 1-3 Urine WBC (0 - 2 /HPF) 1-3 H Ur Epithelial Cells (NONE,FEW) FEW Urine Bacteria (NEG/NONE) RARE H Granular Casts (NONE /LPF) 1-3 H Urine Mucus (FEW,NONE) FEW Urine Hemoglobin (NEG) TRACE-INTACT H Urine Glucose (N MG/DL) NEG Assessment/Plan Assessment/Plan Imp: 1. C. diff colitis 2. L inguinal hernia. No hydrocele present 3. 2.5 cm bladder calculus on CT scan Plan: 1. Patient could f/u with general surgery as outpatient regarding hernia 2. No acute intervention for bladder stone. He can be seen in the office and when he recovers from his colitis could have office cystoscopy and discuss subsequent hospital cystoscopy and laser litho of bladder stone. Alternative is to follow conservatively as he denies sx's and urine is not infected Consult Acknowledgment - Thank you for your consult request.
[2017-08-23 21:58] VITALS: BP 114/58
[2017-08-24 06:45] VITALS: BP 120/64
--- NOTE | 2017-08-24 07:15 | PN- Housestaff ---
Osiel Zapata 08/24/17 0713: Subjective Follow-up For: #Colitis #Left lower extremity ulcer #Scrotal edema Subjective: Patient reports 3 watery bowel movements yesterday. He denies abdominal pain, nausea, or bowel movements this morning Review of Systems Constitutional: Reports: see HPI. Objective Last 24 Hrs of Vital Signs/I&O Vital Signs Date Time Temp Pulse Resp B/P B/P Pulse O2 O2 Flow FiO2 Mean Ox Delivery Rate 08/24 0645 98.2 88 20 120/64 93 Room Air / 2158 98.4 96 20 114/58 94 Room Air / 1413 97.8 89 18 112/60 98 Room Air Intake & Output 08/24 1600 / 0800 / 0000 Intake Total 720 520 Output Total 200 Balance 720 320 Intake, IV 600 400 Intake, Oral 120 120 Number 5 Bowel Movements Output, Urine 200 Patient 143 lb Weight Weight Reported by Patient Measurement Method Physical Exam General Appearance: Alert, Oriented X3, Cooperative, No Acute Distress HEENT: Atraumatic, PERRLA, EOMI, Mucous Membr. moist/pink Cardiovascular: Regular Rate, Normal S1, Normal S2 Lungs: Clear to Auscultation, Normal Air Movement Abdomen: Normal Bowel Sounds, Soft, No Tenderness Current Medications: Current Medications Sig/Lew Start time Last Medication Dose Route Stop Time Status Admin Acetaminophen 650 MG Q8P PRN / 1415 AC PO Dextrose/Sodium 1,000 ML Q13H / 1030 AC 05/07 Chloride IV 2041 Dextrose/Sodium 1,000 ML Q9H / 0645 DC 05/ Chloride IV 0745 Ondansetron HCl 4 MG Q8P PRN / 1415 AC IV Patient Medication 1 ED ONE ONE 08/23 1545 DC / Teaching ED / 1546 0712 Vancomycin HCl 125 MG Q6H /07 1600 AC 05/ PO 0358 Vancomycin HCl 250 MG Q6H /06 2200 DC 05/ PO 0911 Vitamin A/Vitamin D 1 KRISTA BID 08/22 2100 08/23 TOP 0913 Warfarin Sodium 4 MG COUMADIN 1700 ONE / 1700 DC 05/ PO / 1701 1631 Zinc Oxide 1 KRISTA BID / 2100 08/23 TOP 0914 Last 24 Hrs of Lab/Joshua Results Last 24 Hrs of Labs/Mics: Laboratory Tests 08/24/17 0620: Anion Gap 12, Estimated GFR > 60, BUN/Creatinine Ratio 24.3, PT 19.1 H, INR 1.74 H, CBC w Diff NO MAN DIFF REQ, RBC 3.76 L, MCV 98.0 H, MCH 31.8 H, MCHC 32.5 L, RDW 14.6 H, MPV 8.6, Gran % 82.7 H, Lymphocytes % 8.2 L, Monocytes % 8.4, Eosinophils % 0.4, Basophils % 0.3, Absolute Granulocytes 11.9 H, Absolute Lymphocytes 1.2, Absolute Monocytes 1.2 H, Absolute Eosinophils 0.1, Absolute Basophils 0 Microbiology 08/24 0137 STOOL: Stool Culture - COLB Assessment/Plan Assessment: Mr. 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 Renal US showed cysts and testicular US showed hernias Problem list: #Colitis #Left lower extremity ulcer #Scrotal edema Plan: Continue Vancomycin for C.difficle Potassium supplement for hypokalemia Will advance diet as tolerated Will dose Warfarin as per INR Continue IVF @ 75cc/hr Appreciate Urology recommendations, patient will follow up as an outpatient Appreciate Wound care recommendations Follow up with gen surg as an outpatient for possible hernia intervention Diet: Full liquid DVT ppx: Warfarin Code: DNR/I Dispo: Pending Problem List: 1. Diarrhea Pain Ratin Pain Location: NA Pain Goal: Remain pain free Pain Plan: NA Tomorrow's Labs & Rationales: CBC, BEP, PT/INR Gabe JALLOH,[facility] 08/24/17 1059: Attending MD Review Statement Attending Statement Attending MD Statement: examined this patient, discuss w/resident/PA/POWER STATION OPERATOR, agreed w/resident/PA/POWER STATION OPERATOR, reviewed EMR data (avail), discussed with nursing, discussed with case mgmt, reviewed images, amended to note Attending Assessment/Plan: Patient seen and examined, still having significant amount of diarrhea. Denies any abdominal pain. Patient currently on clear liquid and advance to advance his diet. C. difficile results were positive on stool culture. Vital Signs Date Time Temp Pulse Resp B/P B/P Pulse O2 O2 Flow FiO2 Mean Ox Delivery Rate 08/24 644 98.2 88 20 120/64 93 Room Air 08/23 2158 98.4 96 20 114/58 94 Room Air 08/23 1413 97.8 89 18 112/60 98 Room Air on exam; aox3, nad. cv; s1,s2, rrr resp; clear abd; soft, nt, bs+ ext; no edema : + inguinal hernia. Laboratory Tests 08/25 619 Chemistry Sodium (137 - 145 mmol/L) 140 Potassium (3.5 - 5.1 mmol/L) 3.2 L Chloride (98 - 107 mmol/L) 106 Carbon Dioxide (22 - 30 mmol/L) 22 Anion Gap (5 - 16) 12 BUN (9 - 20 mg/dL) 17 Creatinine (0.7 - 1.2 mg/dL) 0.7 Estimated GFR (>60 ml/min) > 60 BUN/Creatinine Ratio (7 - 25 %) 24.3 Coagulation PT (9.4 - 12.5 SEC) 19.1 H INR (0.90 - 1.17) 1.74 H Hematology CBC w Diff NO MAN DIFF REQ WBC (4.8 - 10.8 /CUMM) 14.4 H RBC (4.70 - 6.10 /CUMM) 3.76 L Hgb (14.0 - 18.0 G/DL) 12.0 L Hct (42 - 52 %) 36.8 L MCV (80.0 - 94.0 FL) 98.0 H MCH (27.0 - 31.0 PG) 31.8 H MCHC (33.0 - 37.0 G/DL) 32.5 L RDW (11.5 - 14.5 %) 14.6 H Plt Count (130 - 400 /CUMM) 188 MPV (7.4 - 10.4 FL) 8.6 Gran % (42.2 - 75.2 %) 82.7 H Lymphocytes % (20.5 - 51.1 %) 8.2 L Monocytes % (1.7 - 9.3 %) 8.4 Eosinophils % (0 - 5 %) 0.4 Basophils % (0.0 - 2.0 %) 0.3 Absolute Granulocytes (1.4 - 6.5 /CUMM) 11.9 H Absolute Lymphocytes (1.2 - 3.4 /CUMM) 1.2 Absolute Monocytes (0.10 - 0.60 /CUMM) 1.2 H Absolute Eosinophils (0.0 - 0.7 /CUMM) 0.1 Absolute Basophils (0.0 - 0.2 /CUMM) 0 A/P: 87 y/o M with pmh sig for atrial fibrillation, osteoporosis, 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 C. difficile results were positive on stool culture. Patient currently on treatment with vancomycin. But monitor the response. Will advance diet to full liquids. Appreciate urology input. Outpatient follow-up is recommended. Patient should also follow-up with general surgery as an outpatient. Please replete electrolytes as indicated. Gentle IV hydration. Patient on Coumadin and can be dosed at 4 mg today with recheck INR in the morning. Pt to ambulate with PT.
[2017-08-24 08:29] LABS: ABSOLUTE BASOPHIL COUNT 0 /CUMM (0.0-0.2); ABSOLUTE EOSINOPHIL COUNT 0.1 /CUMM (0.0-0.7); ABSOLUTE GRANULOCYTE CT 11.9 /CUMM (1.4-6.5); ABSOLUTE LYMPH COUNT 1.2 /CUMM (1.2-3.4); ABSOLUTE MONOCYTE COUNT 1.2 /CUMM (0.10-0.60); BASOPHIL % 0.3 % (0.0-2.0); EOSINOPHIL % 0.4 % (0-5); GRANULOCYTE % 82.7 % (42.2-75.2); HEMATOCRIT 36.8 % (42-52); MEAN CORPUSCULAR HGB 31.8 PG (27.0-31.0); MEAN CORPUSCULAR HGB CONC 32.5 G/DL (33.0-37.0); MEAN PLATELET VOLUME 8.6 FL (7.4-10.4); PLATELET COUNT 188 /CUMM (130-400); RBC DISTRIBUTION WIDTH 14.6 % (11.5-14.5); RED BLOOD CELL CT 3.76 /CUMM (4.70-6.10); WHITE BLOOD CELL COUNT 14.4 /CUMM (4.8-10.8)
[2017-08-24 08:35] LABS: PT 19.1 SEC (9.4-12.5)
[2017-08-24 15:15] VITALS: BP 114/60
[2017-08-24 22:13] VITALS: BP 126/70
[2017-08-25 05:54] VITALS: BP 108/72
--- NOTE | 2017-08-25 07:39 | PN- Housestaff ---
Osiel Zapata 08/25/17 0739: Subjective Follow-up For: #Colitis #Left lower extremity ulcer #Scrotal edema Subjective: Patient reports multiple epidoses of diarrhea but able to tolerate diet. Denies BRBPR, melena or hematuria Review of Systems Constitutional: Reports: see HPI. Objective Last 24 Hrs of Vital Signs/I&O Vital Signs Date Time Temp Pulse Resp B/P B/P Pulse O2 O2 Flow FiO2 Mean Ox Delivery Rate 08/25 0554 97.6 82 22 108/72 94 08/24 2213 98.1 84 22 126/70 98 Room Air 08/24 1600 Room Air 08/24 1515 98.0 93 20 114/60 03 Room Air Intake & Output 08/25 0800 08/25 0000 08/24 1600 Intake Total 720 1000 1080 Output Total 250 400 125 Balance 470 600 955 Intake, IV 600 700 600 Intake, Oral 120 300 480 Number 2 5 1 Bowel Movements Output, Urine 250 400 125 Physical Exam General Appearance: Alert, Oriented X3, Cooperative, No Acute Distress Cardiovascular: Regular Rate, Normal S1, Normal S2 Lungs: Clear to Auscultation, Normal Air Movement Abdomen: Normal Bowel Sounds, Soft, No Tenderness Current Medications: Current Medications Sig/Lew Start time Last Medication Dose Route Stop Time Status Admin Acetaminophen 650 MG Q8P PRN 08/22 1415 AC PO Dextrose/Sodium 1,000 ML Q13H 08/23 1030 AC / Chloride IV 2336 Ondansetron HCl 4 MG Q8P PRN / 1415 AC IV Potassium Chloride 40 MEQ ONCE ONE 08/24 1115 DC / PO 08/24 1116 1253 Vancomycin HCl 125 MG Q6H / 1600 AC 08/25 PO 0342 Vitamin A/Vitamin D 1 KRISTA BID 08/22 2100 08/23 TOP 0913 Warfarin Sodium 4 MG COUMADIN 1700 ONE 08/24 1700 DC / PO /08 1701 1608 Zinc Oxide 1 KRISTA BID 08/22 2100 08/23 TOP 0914 Last 24 Hrs of Lab/Joshua Results Last 24 Hrs of Labs/Mics: Laboratory Tests 08/25/17 0619: Sodium Pending, Potassium Pending, Chloride Pending, Carbon Dioxide Pending, Anion Gap Pending, BUN Pending, Creatinine Pending, BUN/Creatinine Ratio Pending , PT Pending, INR Pending, CBC w Diff Pending, WBC Pending, RBC Pending, Hgb Pending, Hct Pending, MCV Pending, MCH Pending, MCHC Pending, RDW Pending, Plt Count Pending, MPV Pending Assessment/Plan Assessment: Mr. 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 Renal US showed cysts and testicular US showed hernias Problem list: #Colitis #Left lower extremity ulcer #Scrotal edema Plan: Continue Vancomycin for C.difficle Potassium supplement for hypokalemia Mag sulfate supplement for hypomagnesemia Will advance diet as tolerated Will dose Warfarin as per INR Continue IVF @ 75cc/hr Appreciate Urology recommendations, patient will follow up as an outpatient Appreciate Wound care recommendations Follow up with gen surg as an outpatient for possible hernia intervention Diet: Full liquid DVT ppx: Warfarin Code: DNR/I Dispo: Pending Problem List: 1. Renal mass 2. Ulcer of left lower extremity 3. C. difficile colitis Pain Ratin Pain Location: NA Pain Goal: Remain pain free Pain Plan: NA Tomorrow's Labs & Rationales: CBC, BEP Gabe JALLOH,[facility] 08/25/17 1153: Attending MD Review Statement Attending Statement Attending MD Statement: examined this patient, discuss w/resident/PA/BRICK PAVER, agreed w/resident/PA/BRICK PAVER, reviewed EMR data (avail), discussed with nursing, discussed with case mgmt, reviewed images, amended to note Attending Assessment/Plan: Patient seen and examined, still having significant amount of diarrhea. He denies any abdominal pain. He denies any feeling of nausea vomiting. Leukocytosis with slight improvement. Vital Signs Date Time Temp Pulse Resp B/P B/P Pulse O2 O2 Flow FiO2 Mean Ox Delivery Rate 08/25 0554 97.6 82 22 108/72 94 08/24 2213 98.1 84 22 126/70 98 Room Air 08/24 1600 Room Air 08/24 1515 98.0 93 20 114/60 03 Room Air on exam: aox3, nad. cv; s1,s2, rrr resp; clear abd; soft, nt, bs+ ext; no edema Laboratory Tests 08/25 618 Chemistry Sodium (137 - 145 mmol/L) 139 Potassium (3.5 - 5.1 mmol/L) 3.4 L Chloride (98 - 107 mmol/L) 106 Carbon Dioxide (22 - 30 mmol/L) 23 Anion Gap (5 - 16) 10 BUN (9 - 20 mg/dL) 14 Creatinine (0.7 - 1.2 mg/dL) 0.6 L Estimated GFR (>60 ml/min) > 60 BUN/Creatinine Ratio (7 - 25 %) 23.3 Coagulation PT (9.4 - 12.5 SEC) 23.2 H INR (0.90 - 1.17) 2.11 H Hematology CBC w Diff NO MAN DIFF REQ WBC (4.8 - 10.8 /CUMM) 13.4 H RBC (4.70 - 6.10 /CUMM) 3.62 L Hgb (14.0 - 18.0 G/DL) 11.6 L Hct (42 - 52 %) 35.4 L MCV (80.0 - 94.0 FL) 97.9 H MCH (27.0 - 31.0 PG) 32.2 H MCHC (33.0 - 37.0 G/DL) 32.8 L RDW (11.5 - 14.5 %) 14.6 H Plt Count (130 - 400 /CUMM) 188 MPV (7.4 - 10.4 FL) 8.8 Gran % (42.2 - 75.2 %) 83.9 H Lymphocytes % (20.5 - 51.1 %) 8.5 L Monocytes % (1.7 - 9.3 %) 6.6 Eosinophils % (0 - 5 %) 0.9 Basophils % (0.0 - 2.0 %) 0.1 Absolute Granulocytes (1.4 - 6.5 /CUMM) 11.2 H Absolute Lymphocytes (1.2 - 3.4 /CUMM) 1.1 L Absolute Monocytes (0.10 - 0.60 /CUMM) 0.9 H Absolute Eosinophils (0.0 - 0.7 /CUMM) 0.1 Absolute Basophils (0.0 - 0.2 /CUMM) 0 A/P: 87 y/o M with pmh sig for atrial fibrillation, osteoporosis, 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 C. difficile results were positive on stool culture. The patient on vancomycin. We are Questran which should be given 2 hours before and after the vancomycin as it does binder Vanco. We will continue to monitor the diarrhea. Patient otherwise is afebrile and has benign abdomen. Would advance his diet. Will continue IV fluids for now to prevent any dehydration. Please replete electrolytes as indicated. INR therapeutic today. Please dose coumadin at 3 mg today.
[2017-08-25 08:36] LABS: PT 23.2 SEC (9.4-12.5)
[2017-08-25 08:44] LABS: ABSOLUTE BASOPHIL COUNT 0 /CUMM (0.0-0.2); ABSOLUTE EOSINOPHIL COUNT 0.1 /CUMM (0.0-0.7); ABSOLUTE GRANULOCYTE CT 11.2 /CUMM (1.4-6.5); ABSOLUTE LYMPH COUNT 1.1 /CUMM (1.2-3.4); ABSOLUTE MONOCYTE COUNT 0.9 /CUMM (0.10-0.60); BASOPHIL % 0.1 % (0.0-2.0); EOSINOPHIL % 0.9 % (0-5); HEMATOCRIT 35.4 % (42-52); MEAN CORPUSCULAR HGB 32.2 PG (27.0-31.0); MEAN CORPUSCULAR HGB CONC 32.8 G/DL (33.0-37.0); MEAN CORPUSCULAR VOLUME 97.9 FL (80.0-94.0); MEAN PLATELET VOLUME 8.8 FL (7.4-10.4); PLATELET COUNT 188 /CUMM (130-400); RBC DISTRIBUTION WIDTH 14.6 % (11.5-14.5); RED BLOOD CELL CT 3.62 /CUMM (4.70-6.10); WHITE BLOOD CELL COUNT 13.4 /CUMM (4.8-10.8)
--- NOTE | 2017-08-25 08:54 | Cons- Podiatry ---
General Information and HPI Consulting Request Date of Consult: 08/25/17 Requested By: Aline Bernal MD History of Present Illness: Faheem is an 87-year-old male with a significant past medical history who was admitted complaining of a three-day history of watery diarrhea, associated with by mouth antibiotics for an infected ulcer to his left ankle. The patient is seen by me for periodic debridements of a long-standing and nonhealing ulcer to the lateral ankle. It was recommended to the patient that he undergo a formal debridement and negative pressure wound therapy, however he has so far refused this course. Allergies/Medications Allergies: Coded Allergies: codeine (Intermediate, SHAKING 10/29/15) Home Med List: Acetaminophen (Tylenol) 325 MG TABLET 650 MG PO Q8P PRN PAIN SCALE 7-10 ( SEVERE) Cod Liver Oil/Zinc Oxide (Desitin Diaper Rash 40% Paste) 28 GM PASTE..G. 1 KRISTA TOP BID Diaper rash Collagenase Clostridium Hist. (Santyl) 30 GM OINT...G. 1 KRISTA TOP ONCE left lower leg ulcer Docusate Sodium 100 MG CAPSULE 100 MG PO BID CONASTIPATION Fentanyl 25 MCG/HR TDM 1 PATCH TOP Q72H PAIN (Reported) Loperamide HCl (Loperamide) 2 MG TABLET 1 TAB PO Q4 DIARRHEA Risedronate Sodium (Actonel) 35 MG TABLET 1 TAB PO QW BONES (Reported) Sennosides/Docusate Sodium (Senna-Time S Tablet) 8.6 MG-50 MG TABLET 187 MG PO AT BEDTIME PRN CONSTIPATION Vitamin A & D (Vitamin A & D Ointment) 56.7 GM OINT...G. 1 KRISTA TOP BID Diaper rash Warfarin Sodium (Coumadin) 3 MG TABLET 1 TAB PO DAILY POST OP AND AFIB ( Reported) INR BETWEEN 2-3 Past History Medical History Blood Transfusion Hx: Yes Neurological: NONE EENT: NONE Cardiovascular: AFIB Respiratory: NONE Gastrointestinal: constipation, L INGUINAL HERNIA Hepatic: NONE Renal: NONE Musculoskeletal: osteoarthritis Psychiatric: NONE Endocrine: NONE Blood Disorders: NONE Cancer(s): NONE HOSPICE CARE SALES CONSULTANT/Reproductive: NONE Surgical History Pertinent Surgical History: non-contributory Family History Relations & Conditions If Any: Relation not specified for: *No pertinent family history Psychosocial History Where Do You Live? Home Who Do You Live With? self Services at Home: None Primary Language: Armenian Smoking Status: Never Smoked Functional Ability ADLs Independent: dressing, eating, toileting, bathing. Ambulation: cane IADLs Independent: shopping, housework, finances, food prep, telephone, transportation , medication admin. Review of Systems Review of Systems: Unremarkable except for that noted history of present illness Exam & Diagnostic Data Vital Signs and I&O Vital Signs Date Time Temp Pulse Resp B/P B/P Pulse O2 O2 Flow FiO2 Mean Ox Delivery Rate 08/25 0454 97.6 82 22 108/72 94 08/24 2213 98.1 84 22 126/70 98 Room Air 08/24 1600 Room Air 08/24 1515 98.0 93 20 114/60 03 Room Air Intake & Output 08/25 1600 08/25 0800 08/25 0000 08/24 1600 08/25 0700 08/24 0000 Intake Total 720 1000 1080 720 520 Output Total 250 400 125 200 Balance 470 600 955 720 320 Intake, IV 600 700 600 600 400 Intake, Oral 120 300 480 120 120 Number 2 5 1 5 Bowel Movements Output, Urine 250 400 125 200 Patient 143 lb Weight Weight Reported by Patient Measurement Method Physical Exam: Slough overlying a grade 2 ulceration at the lateral aspect of the left ankle. The wound margins are well defined with a mixed base of granular fibrotic tissue. No probing or undermining identified. Moderate amount of serous drainage identified. Assessment/Plan Assessment/Plan Chronic, nonhealing ulceration left ankle. We will discuss the possibility of a formal debridement and negative pressure wound therapy with the patient and go forward, assuming he is amenable to the plan and medically stable. For now, continue with daily dressing changes consisting of Xeroform and Kerlix. Consult Acknowledgment - Thank you for your consult request. Attending MD Review Statement Attending Statement Attending MD Statement: examined this patient
[2017-08-25 09:22] LABS: GRANULOCYTE % 83.9 % (42.2-75.2)
[2017-08-25 14:14] VITALS: BP 118/73
[2017-08-25 22:10] VITALS: BP 92/70
[2017-08-26 06:24] VITALS: BP 98/66
[2017-08-26 07:43] LABS: ABSOLUTE BASOPHIL COUNT 0 /CUMM (0.0-0.2); ABSOLUTE EOSINOPHIL COUNT 0.2 /CUMM (0.0-0.7); ABSOLUTE LYMPH COUNT 1.2 /CUMM (1.2-3.4); ABSOLUTE MONOCYTE COUNT 0.8 /CUMM (0.10-0.60); BASOPHIL % 0.1 % (0.0-2.0); EOSINOPHIL % 1.4 % (0-5); GRANULOCYTE % 82.2 % (42.2-75.2); HEMATOCRIT 35.9 % (42-52); MEAN CORPUSCULAR HGB CONC 32.5 G/DL (33.0-37.0); MEAN CORPUSCULAR VOLUME 98.5 FL (80.0-94.0); MEAN PLATELET VOLUME 8.5 FL (7.4-10.4); PLATELET COUNT 204 /CUMM (130-400); RBC DISTRIBUTION WIDTH 14.3 % (11.5-14.5); RED BLOOD CELL CT 3.65 /CUMM (4.70-6.10); WHITE BLOOD CELL COUNT 12.2 /CUMM (4.8-10.8)
[2017-08-26 07:45] VITALS: BP 104/68
--- NOTE | 2017-08-26 08:12 | PN- Housestaff ---
Osiel Zapata 08/26/17 0812: Subjective Follow-up For: #Colitis #Left lower extremity ulcer #Scrotal edema Subjective: Patient reports 3 episodes of diarrhea overnight. This morning he did not eat all his breakfast but tolerated his oatmeal. Denies abdominal pain, BRBPR, melena, nausea or vomiting Review of Systems Constitutional: Reports: see HPI. Objective Last 24 Hrs of Vital Signs/I&O Vital Signs Date Time Temp Pulse Resp B/P B/P Pulse O2 O2 Flow FiO2 Mean Ox Delivery Rate 08/26 0745 66 104/68 08/26 0624 98.2 85 18 98/66 95 08/25 2210 98.3 85 20 92/70 95 Room Air 08/25 1442 Room Air Room Air 08/25 1414 98.4 89 20 118/73 98 Intake & Output 08/26 1600 08/26 0800 05 0000 Intake Total 605 975 Output Total 75 Balance 605 900 Intake, IV 600 375 Intake, Oral 5 600 Number 3 2 Bowel Movements Output, Urine 75 Patient 143 lb Weight Physical Exam General Appearance: Alert, Oriented X3, Cooperative, No Acute Distress Cardiovascular: Regular Rate, Normal S1, Normal S2 Lungs: Clear to Auscultation, Normal Air Movement Abdomen: Normal Bowel Sounds, Soft, No Tenderness Current Medications: Current Medications Sig/Lew Start time Last Medication Dose Route Stop Time Status Admin Acetaminophen 650 MG Q8P PRN 08/22 1415 AC PO Cholestyramine Resin 1 PAC 0800,08/26 0940 AC PO Dextrose/Sodium 1,000 ML Q13H 08/23 1030 AC 08/26 Chloride IV 0401 Magnesium Sulfate 1 GM Q2H 08/25 0930 DC 08/25 Dextrose/Water 100 ML IV 08/25 1329 1449 Ondansetron HCl 4 MG Q8P PRN 08/22 1415 AC IV Potassium Phosphate 15 mMol ONE ONE 08/25 0945 DC 08/25 Dextrose/Water 250 ML IV 08/25 1349 1711 Vancomycin HCl 125 MG Q6H 08/23 1600 AC 08/26 PO 09/02 1001 0423 Vitamin A/Vitamin D 1 KRISTA BID 08/22 2100 AC 08/23 TOP 0913 Warfarin Sodium 3 MG COUMADIN 1700 ONE 08/25 1700 DC 08/25 PO 08/25 1701 1841 Zinc Oxide 1 KRISTA BID 08/22 2100 AC 08/23 TOP 0914 Last 24 Hrs of Lab/Joshua Results Last 24 Hrs of Labs/Mics: Laboratory Tests 08/26/17 0618: Anion Gap 9, Estimated GFR > 60, BUN/Creatinine Ratio 20.0, PT 25.0 H, INR 2.27 H, CBC w Diff NO MAN DIFF REQ, RBC 3.65 L, MCV 98.5 H, MCH 32.0 H, MCHC 32.5 L, RDW 14.3, MPV 8.5, Gran % 82.2 H, Lymphocytes % 9.9 L, Monocytes % 6.4, Eosinophils % 1.4, Basophils % 0.1, Absolute Granulocytes 10.0 H, Absolute Lymphocytes 1.2, Absolute Monocytes 0.8 H, Absolute Eosinophils 0.2, Absolute Basophils 0 Assessment/Plan Assessment: Mr. 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 Renal US showed cysts and testicular US showed hernias Problem list: #Colitis #Left lower extremity ulcer #Scrotal edema Plan: Continue Vancomycin for C.difficle Start Cholestyramine 2 hours before and after Vancomycin Potassium supplement for hypokalemia Mag sulfate supplement for hypomagnesemia Will dose Warfarin as per INR Continue IVF @ 75cc/hr Appreciate Urology recommendations, patient will follow up as an outpatient Appreciate Wound care recommendations Follow up with gen surg as an outpatient for possible hernia intervention Diet: Regular DVT ppx: Warfarin Code: DNR/I Dispo: Pending Problem List: 1. C. difficile colitis Pain Ratin Pain Location: NA Pain Goal: Remain pain free Pain Plan: NA Tomorrow's Labs & Rationales: CBC, BEP, INR Gabe JALLOH,[facility] 08/26/17 1122: Attending MD Review Statement Attending Statement Attending MD Statement: examined this patient, discuss w/resident/PA/APPLE PEELER OPERATOR, agreed w/resident/PA/APPLE PEELER OPERATOR, reviewed EMR data (avail), discussed with nursing, discussed with case mgmt, reviewed images, amended to note Attending Assessment/Plan: Patient seen and examined, still having watery diarrhea although the frequency has reduced. He denies any abdominal pain. White blood cell count is slightly better today. Patient has no fevers. Vital Signs Date Time Temp Pulse Resp B/P B/P Pulse O2 O2 Flow FiO2 Mean Ox Delivery Rate 08/26 1046 Room Air Room Air 08/26 1043 Room Air Room Air 08/26 0745 66 104/68 08/26 0624 98.2 85 18 98/66 95 08/25 2210 98.3 85 20 92/70 95 Room Air 08/25 1442 Room Air Room Air 08/25 1414 98.4 89 20 118/73 98 on exam: aox3, nad. cv; s1,s2, rrr resp; clear abd; soft, nt, bs+ ext; no edema. Laboratory Tests 08/26 617 Chemistry Sodium (137 - 145 mmol/L) 137 Potassium (3.5 - 5.1 mmol/L) 3.6 Chloride (98 - 107 mmol/L) 106 Carbon Dioxide (22 - 30 mmol/L) 22 Anion Gap (5 - 16) 9 BUN (9 - 20 mg/dL) 12 Creatinine (0.7 - 1.2 mg/dL) 0.6 L Estimated GFR (>60 ml/min) > 60 BUN/Creatinine Ratio (7 - 25 %) 20.0 Coagulation PT (9.4 - 12.5 SEC) 25.0 H INR (0.90 - 1.17) 2.27 H Hematology CBC w Diff NO MAN DIFF REQ WBC (4.8 - 10.8 /CUMM) 12.2 H RBC (4.70 - 6.10 /CUMM) 3.65 L Hgb (14.0 - 18.0 G/DL) 11.7 L Hct (42 - 52 %) 35.9 L MCV (80.0 - 94.0 FL) 98.5 H MCH (27.0 - 31.0 PG) 32.0 H MCHC (33.0 - 37.0 G/DL) 32.5 L RDW (11.5 - 14.5 %) 14.3 Plt Count (130 - 400 /CUMM) 204 MPV (7.4 - 10.4 FL) 8.5 Gran % (42.2 - 75.2 %) 82.2 H Lymphocytes % (20.5 - 51.1 %) 9.9 L Monocytes % (1.7 - 9.3 %) 6.4 Eosinophils % (0 - 5 %) 1.4 Basophils % (0.0 - 2.0 %) 0.1 Absolute Granulocytes (1.4 - 6.5 /CUMM) 10.0 H Absolute Lymphocytes (1.2 - 3.4 /CUMM) 1.2 Absolute Monocytes (0.10 - 0.60 /CUMM) 0.8 H Absolute Eosinophils (0.0 - 0.7 /CUMM) 0.2 Absolute Basophils (0.0 - 0.2 /CUMM) 0 A/P: 87 y/o M with pmh sig for atrial fibrillation, osteoporosis, 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 C. difficile results were positive on stool culture. Will continue by mouth vancomycin. We'll add Questran. There is improvement in white blood cell count in the frequency of diarrhea is slightly better. Continue rest of the Mx. Pt getting gentle IV hydration. DVT px; Pt on coumadin with therapeutic INR. PT recommends STR.
[2017-08-26 14:06] VITALS: BP 110/60
--- NOTE | 2017-08-26 18:00 | PN- Podiatry ---
Subjective Subjective: Patient's inability to 4 chronic and nonhealing ulcer lateral left ankle. Patient denies any specific complaints associated with this lesion. Objective Vital Signs and I&Os Vital Signs Date Time Temp Pulse Resp B/P B/P Pulse O2 O2 Flow FiO2 Mean Ox Delivery Rate 08/26 1406 98.1 64 18 110/60 93 08/26 1046 Room Air Room Air 08/26 1043 Room Air Room Air 08/26 0745 66 104/68 08/26 0624 98.2 85 18 98/66 95 08/25 2210 98.3 85 20 92/70 95 Room Air Intake & Output 08/26 1600 08/26 0800 08/26 0000 08/25 1600 08/25 0800 08/25 0000 Intake Total 1400 566 764 6335 720 1000 Output Total 450 75 500 250 400 Balance 950 997 393 7852 470 600 Intake, IV 600 600 375 490 600 700 Intake, Oral 800 5 600 1100 120 300 Number 3 3 2 2 2 5 Bowel Movements Output, Urine 450 75 500 250 400 Patient 143 lb Weight Physical Exam: Dressing left ankle clean, dry and intact. No pain with deep palpation left lower extremity. Assessment/Plan Assessment/Plan Nonhealing ulcer lateral left ankle. Discussed at bedside options and patient is receptive to a washout and negative pressure wound therapy for tomorrow. Nothing by mouth past midnight. Attending MD Review Statement Attending Statement Attending MD Statement: examined this patient
[2017-08-26 22:30] VITALS: BP 100/80
[2017-08-27 06:40] VITALS: BP 120/80
[2017-08-27 07:56] LABS: ABSOLUTE BASOPHIL COUNT 0 /CUMM (0.0-0.2); ABSOLUTE EOSINOPHIL COUNT 0.2 /CUMM (0.0-0.7); ABSOLUTE MONOCYTE COUNT 0.8 /CUMM (0.10-0.60); BASOPHIL % 0.3 % (0.0-2.0); EOSINOPHIL % 1.9 % (0-5); GRANULOCYTE % 79.7 % (42.2-75.2); HEMATOCRIT 36.7 % (42-52); MEAN CORPUSCULAR HGB 31.3 PG (27.0-31.0); MEAN CORPUSCULAR HGB CONC 32.1 G/DL (33.0-37.0); MEAN CORPUSCULAR VOLUME 97.5 FL (80.0-94.0); MEAN PLATELET VOLUME 8.8 FL (7.4-10.4); PLATELET COUNT 215 /CUMM (130-400); RBC DISTRIBUTION WIDTH 14.4 % (11.5-14.5); RED BLOOD CELL CT 3.76 /CUMM (4.70-6.10)
[2017-08-27 08:17] LABS: PT 25.2 SEC (9.4-12.5)
--- NOTE | 2017-08-27 09:28 | PN- Housestaff ---
Subjective Follow-up For: #Colitis #Left lower extremity ulcer s/p debridement PD 0 #Scrotal edema Subjective: Patient reports multiple episodes of diarrhea overnight but agrees with a decrease in frequency and he is able to ambulate to the commode without soiling his bed or gown. Denies abdominal pain, BRBPR, melena, nausea or vomiting. Patient anticipates going to the OR today for left ankle wound debridement Review of Systems Constitutional: Reports: see HPI. Objective Last 24 Hrs of Vital Signs/I&O Vital Signs Date Time Temp Pulse Resp B/P B/P Pulse O2 O2 Flow FiO2 Mean Ox Delivery Rate 08/27 1117 Room Air Room Air 08/27 0640 97.9 95 20 120/80 95 Room Air 08/26 2230 98.5 70 18 100/80 95 Room Air 08/26 1406 98.1 64 18 110/60 93 Intake & Output 08/27 1600 08/27 0800 08/27 0000 Intake Total 600 Output Total Balance 600 Intake, IV 600 Number 2 Bowel Movements Physical Exam General Appearance: Alert, Oriented X3, Cooperative Assessment/Plan Assessment: Mr. 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 Renal US showed cysts and testicular US showed hernias Problem list: #Colitis #Left lower extremity ulcer s/p debridement - PD 0 #Scrotal edema Plan: Continue Vancomycin for C.difficle Continue Cholestyramine 2 hours before and after Vancomycin Potassium supplement for hypokalemia Mag sulfate supplement for hypomagnesemia Will dose Warfarin as per INR after debridement today Continue D5W IVF @ 75cc/hr Appreciate Urology recommendations, patient will follow up as an outpatient Appreciate Wound care recommendations Follow up with gen surg as an outpatient for possible hernia intervention Diet: Regular DVT ppx: Warfarin Code: DNR/I Dispo: STR Problem List: 1. C. difficile colitis 2. Ulcer of left lower extremity Pain Ratin Pain Location: NA Pain Goal: Remain pain free Pain Plan: NA Tomorrow's Labs & Rationales: CBC, BEP, INR
--- NOTE | 2017-08-27 11:42 | PN- Att Addend ---
Attending Addendum Attending Brief Note Patient seen and examined, still having diarrhea. Patient is scheduled to go to or today for Dr. Yu for the left foot wound and will require wound VAC likely. Vital Signs Date Time Temp Pulse Resp B/P B/P Pulse O2 O2 Flow FiO2 Mean Ox Delivery Rate 08/27 1117 Room Air Room Air 08/27 0640 97.9 95 20 120/80 95 Room Air 08/26 2230 98.5 70 18 100/80 95 Room Air 08/26 1406 98.1 64 18 110/60 93 on exam; aox3, nad. cv; s1,s2, rrr resp; clear abd; soft, nt, bs+ ext; no edema Laboratory Tests 08/27 0600 Chemistry Sodium (137 - 145 mmol/L) 138 Potassium (3.5 - 5.1 mmol/L) 3.7 Chloride (98 - 107 mmol/L) 105 Carbon Dioxide (22 - 30 mmol/L) 24 Anion Gap (5 - 16) 8 BUN (9 - 20 mg/dL) 10 Creatinine (0.7 - 1.2 mg/dL) 0.7 Estimated GFR (>60 ml/min) > 60 BUN/Creatinine Ratio (7 - 25 %) 14.3 Coagulation PT (9.4 - 12.5 SEC) 25.2 H INR (0.90 - 1.17) 2.29 H Hematology CBC w Diff NO MAN DIFF REQ WBC (4.8 - 10.8 /CUMM) 10.0 RBC (4.70 - 6.10 /CUMM) 3.76 L Hgb (14.0 - 18.0 G/DL) 11.8 L Hct (42 - 52 %) 36.7 L MCV (80.0 - 94.0 FL) 97.5 H MCH (27.0 - 31.0 PG) 31.3 H MCHC (33.0 - 37.0 G/DL) 32.1 L RDW (11.5 - 14.5 %) 14.4 Plt Count (130 - 400 /CUMM) 215 MPV (7.4 - 10.4 FL) 8.8 Gran % (42.2 - 75.2 %) 79.7 H Lymphocytes % (20.5 - 51.1 %) 9.7 L Monocytes % (1.7 - 9.3 %) 8.4 Eosinophils % (0 - 5 %) 1.9 Basophils % (0.0 - 2.0 %) 0.3 Absolute Granulocytes (1.4 - 6.5 /CUMM) 8.0 H Absolute Lymphocytes (1.2 - 3.4 /CUMM) 1.0 L Absolute Monocytes (0.10 - 0.60 /CUMM) 0.8 H Absolute Eosinophils (0.0 - 0.7 /CUMM) 0.2 Absolute Basophils (0.0 - 0.2 /CUMM) 0 A/P: 87 y/o M with pmh sig for atrial fibrillation, osteoporosis, 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 C. difficile results were positive on stool culture. Patient also has nonhealing left foot wound and for that he's going to operating room with Dr. Yu for the debridement as well as possible wound VAC. Will continue by mouth vancomycin and Questran. Continue IV fluids throughout today. Diarrhea is slowly improving. White blood cell count is normal today. DVT px; INR therapeutic. Will dose coumadin at 3 mg today.
[2017-08-27 12:20] VITALS: BP 124/70
--- NOTE | 2017-08-27 13:31 | Operative Report ---
Operative/Inv Procedure Report Surgery Date: 08/27/17 Name of Procedure: 1 open incision and drainage deep to the D fashion with exposure of the extensor tendon and tendon sheath multiple sites left ankle 2 negative pressure wound therapy left ankle 3 intraoperative administration of ankle block anesthesia 4 excisional debridement Pre-Operative Diagnosis: 1 open, necrotic wound left ankle 2 peripheral vascular disease Post-Operative Diagnosis: The same Estimated Blood Loss: less than 50ml Surgeon/Supervisor Bonding: SUDHA CAI DPM Anesthesia: moderate sedation, block Operative/Procedure Note Note: After obtaining informed consent the patient was brought to the operating room and placed on the operating table in the supine position. The patient isn't securely fastened to the operating table utilizing safety belt. After administration of IV sedation, 10 mL of 0.5% Marcaine plain was infiltrated about the patient's left ankle. Left foot and ankle then scrubbed, prepped and draped in usual aseptic manner. Attention directed lateral aspect the left ankle, where a large full-thickness necrotic was identified. The lesion was noted to measure 12 cm x 8 cm. A 15 blade visualized to sharply revise the skin margins. The dissection was then carried down deep to the deep fascia with exposure of the extensor tendon and tendon sheath multiple sites, both proximally and distally. All necrotic, nonviable infected tissue sharply evacuated from the wound bed. Specimen was sent for both microbiologic and pathologic inspection. The open wound was then irrigated with 3 L of normal sterile saline infusion 50,000 units of bacitracin. Following this, the foot was redraped and the surgeon's top gloves were changed clean gloves. Any bleeding vessels identified were cauterized or ligated as encountered. Next, negative pressure wound therapy was placed about the wound bed. The ankle was then dressed with Kerlix and an Sean wrap. The patient was noted tolerate both procedure and anesthesia well and the patient was transported from the operating room to recovery with vital signs stable.
[2017-08-27 14:35] VITALS: BP 112/80
[2017-08-27 21:44] VITALS: BP 118/62
--- NOTE | 2017-08-28 05:50 | PN- Housestaff ---
Nuzhat JALLOH,[facility] 08/28/17 0549: Subjective Follow-up For: #Colitis #Left lower extremity ulcer s/p debridement PD 0 #Scrotal edema Subjective: Patient seen and examined at bedside. No overnight events. Patient still has multiple episodes of diarrhea. He complains of his "stomach hurting" after drinking vancomycin. Review of Systems Constitutional: Reports: see HPI. Objective Last 24 Hrs of Vital Signs/I&O Vital Signs Date Time Temp Pulse Resp B/P B/P Pulse O2 O2 Flow FiO2 Mean Ox Delivery Rate 08/28 0637 97.6 68 18 116/64 93 08/27 2144 97.2 64 18 118/62 94 Room Air 08/27 1435 98.0 70 20 112/80 96 Room Air Intake & Output 08/28 1600 08/28 0800 08/28 0000 Intake Total 720 200 Output Total 450 Balance 270 200 Intake, IV 600 Intake, Oral 120 200 Output, Urine 450 Physical Exam General Appearance: Alert, Oriented X3, Cooperative, No Acute Distress Cardiovascular: Regular Rate, Normal S1, Normal S2, No Murmurs Lungs: Clear to Auscultation Abdomen: Soft, No Tenderness, No Hepatospenomegaly Last 24 Hrs of Lab/Joshua Results Last 24 Hrs of Labs/Mics: Laboratory Tests 08/28/17 0617: Anion Gap 12, Estimated GFR > 60, BUN/Creatinine Ratio 17.1, PT 36.4 H, INR 3.30 H, CBC w Diff NO MAN DIFF REQ, RBC 3.53 L, MCV 97.8 H, MCH 31.6 H, MCHC 32.4 L, RDW 14.8 H, MPV 8.6, Gran % 91.9 H, Lymphocytes % 4.1 L, Monocytes % 3.7, Eosinophils % 0, Basophils % 0.3, Absolute Granulocytes 11.1 H, Absolute Lymphocytes 0.5 L, Absolute Monocytes 0.4, Absolute Eosinophils 0, Absolute Basophils 0 Microbiology 08/27 1309 EXTREMITIE: Gross Specimen Examination - RES GRAM NEGATIVE RODS STAPH SPECIES 08/27 1309 EXTREMITIE: Gram Stain - RES Assessment/Plan Assessment: Mr. 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 Renal US showed cysts and testicular US showed hernias Problem list: #Colitis #Left lower extremity ulcer s/p debridement - PD 0 #Scrotal edema Plan: Continue Vancomycin for C.difficle. Continue Cholestyramine 2 hours before and after Vancomycin Potassium supplement for hypokalemia Mag sulfate supplement for hypomagnesemia Will dose Warfarin as per INR. Chest x-ray to rule out volume overload Appreciate Urology recommendations, patient will follow up as an outpatient Appreciate Wound care recommendations Follow up with gen surg as an outpatient for possible hernia intervention Diet: Regular DVT ppx: Warfarin Code: DNR/I Dispo: STR Problem List: 1. C. difficile colitis 2. Ulcer of left lower extremity Pain Ratin Pain Location: none Pain Goal: Remain pain free Pain Plan: tylenol Tomorrow's Labs & Rationales: cbc,bep Gabe JALLOH,[facility] 08/28/17 1503: Attending MD Review Statement Attending Statement Attending MD Statement: examined this patient, discuss w/resident/PA/FACILITY ASSISTANT, agreed w/resident/PA/FACILITY ASSISTANT, reviewed EMR data (avail), discussed with nursing, discussed with case mgmt, reviewed images, amended to note Attending Assessment/Plan: Patient seen and examined, overall doing better. The frequency of diarrhea has improved. White blood cell count has a slight bump today. Patient complained of some gurgly sounds in the chest. Be to the chest x-ray which shows small pleural effusions. We have stopped his IV fluids and will give a small dose of Lasix. Continue oral vancomycin and Questran. We'll continue to monitor the diarrhea. Please check BEP and CBC in the morning. Patient will be encouraged to ambulate. Will hold Coumadin today as INR is supratherapeutic. Will recheck INR in the morning.
[2017-08-28 06:37] VITALS: BP 116/64
[2017-08-28 08:20] LABS: ABSOLUTE BASOPHIL COUNT 0 /CUMM (0.0-0.2); ABSOLUTE EOSINOPHIL COUNT 0 /CUMM (0.0-0.7); ABSOLUTE GRANULOCYTE CT 11.1 /CUMM (1.4-6.5); ABSOLUTE LYMPH COUNT 0.5 /CUMM (1.2-3.4); ABSOLUTE MONOCYTE COUNT 0.4 /CUMM (0.10-0.60); BASOPHIL % 0.3 % (0.0-2.0); EOSINOPHIL % 0 % (0-5); GRANULOCYTE % 91.9 % (42.2-75.2); HEMATOCRIT 34.5 % (42-52); MEAN CORPUSCULAR HGB 31.6 PG (27.0-31.0); MEAN CORPUSCULAR HGB CONC 32.4 G/DL (33.0-37.0); MEAN CORPUSCULAR VOLUME 97.8 FL (80.0-94.0); MEAN PLATELET VOLUME 8.6 FL (7.4-10.4); PLATELET COUNT 238 /CUMM (130-400); RBC DISTRIBUTION WIDTH 14.8 % (11.5-14.5); RED BLOOD CELL CT 3.53 /CUMM (4.70-6.10)
[2017-08-28 08:22] LABS: PT 36.4 SEC (9.4-12.5)
[2017-08-28 09:27] LABS: WHITE BLOOD CELL COUNT 12.1 /CUMM (4.8-10.8)
--- NOTE | 2017-08-28 14:30 | RADIOLOGY REPORT ---
EXAMINATION: XR CHEST CLINICAL INFORMATION: C. Difficile colitis. Fluid overload? COMPARISON: CXR from 02/22/2016. Abdomen CT from 0 0 10/06/2017. TECHNIQUE: 2 views of the chest were obtained. FINDINGS: Cardiomegaly and prominent central pulmonary vessels without interstitial edema. Atherosclerotic calcification of the thoracic aorta. Small bilateral pleural effusions are new compared to 08/22/2017. Associated bibasilar opacities/atelectasis, including platelike atelectasis within the right middle lobe. The visualized bones are intact. No pneumoperitoneum. IMPRESSION: 1. Cardiomegaly without acute pulmonary edema. 2. Bibasilar atelectasis and small bilateral pleural effusions, which are new compared to 08/22/2017.
[2017-08-28 21:19] VITALS: BP 122/62
[2017-08-29 02:00] VITALS: BP 118/68
[2017-08-29 06:35] VITALS: BP 112/66
--- NOTE | 2017-08-29 07:32 | PN- Housestaff ---
Nuzhat JALLOH,[facility] 08/29/17 0732: Subjective Follow-up For: #Colitis #Left lower extremity ulcer s/p debridement P0D 2 #Scrotal edema Subjective: Patient seen and examined at bedside. Complains of left leg pain. Multiple bowel movement. Denies nausea, vomiting, abdominal pain. Review of Systems Constitutional: Reports: no symptoms, see HPI. Objective Last 24 Hrs of Vital Signs/I&O Vital Signs Date Time Temp Pulse Resp B/P B/P Pulse O2 O2 Flow FiO2 Mean Ox Delivery Rate 08/29 0635 98.2 69 18 112/66 95 08/28 2119 97.4 75 18 122/62 95 Room Air Intake & Output 08/29 0800 08/29 0000 08/28 1600 Intake Total 120 320 725 Output Total 400 300 Balance -280 20 725 Intake, IV 20 225 Intake, Oral 120 300 500 Number 3 0 Bowel Movements Output, Urine 400 300 Physical Exam General Appearance: Alert, Oriented X3, Cooperative, No Acute Distress Cardiovascular: Regular Rate, Normal S1, Normal S2, No Murmurs Lungs: Clear to Auscultation Abdomen: Soft, No Tenderness, No Hepatospenomegaly Neurological: Normal Speech, Strength at 5/5 X4 Ext, Normal Tone, Sensation Intact Extremities: No Cyanosis, No Edema, left foot-dressing intact Reproductive (MALE) scrotal swelling seen. No redness. Current Medications: Current Medications Sig/Lew Start time Last Medication Dose Route Stop Time Status Admin Acetaminophen 650 MG Q8P PRN 08/22 1415 AC 08/29 PO 0409 Calcium Carbonate 500 MG DAILY 08/28 1114 AC 08/28 PO 1302 Cholestyramine Resin 1 PAC 0800,08/26 0940 AC 08/28 PO 1917 Dextrose/Sodium 1,000 ML Q13H 08/23 1030 DC 08/28 Chloride IV 0420 Furosemide 20 MG ONCE ONE 08/28 1515 DC / IV 08/28 1516 1640 Ondansetron HCl 4 MG Q8P PRN 08/22 1415 AC IV Vancomycin HCl 125 MG Q6H /07 1600 AC 08/29 PO 09/02 1001 0302 Vitamin A/Vitamin D 1 KRISTA BID 08/22 2100 AC 08/28 TOP 0911 Zinc Oxide 1 KRISTA BID 08/22 2100 AC 08/28 TOP 0911 Last 24 Hrs of Lab/Joshua Results Last 24 Hrs of Labs/Mics: Laboratory Tests 08/29/17 0914: Anion Gap 12, Estimated GFR > 60, BUN/Creatinine Ratio 21.3, PT 25.3 H, INR 2.30 H, CBC w Diff Pending, WBC Pending, RBC Pending, Hgb Pending, Hct Pending, MCV Pending, MCH Pending, MCHC Pending, RDW Pending, Plt Count Pending, MPV Pending Assessment/Plan Assessment: Mr. 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 Renal US showed cysts and testicular US showed hernias Problem list: #Colitis #Left lower extremity ulcer s/p debridement - PD 0 #Scrotal edema Plan: Continue by mouth Vancomycin for C.difficle. Continue Cholestyramine 2 hours before and after Vancomycin Hypokalemia resolved. Will dose Warfarin as per INR. Chest x-ray taken yesterday showed bilateral small pleural effusion. He was given IV Lasix once yesterday. Appreciate Urology recommendations, patient will follow up as an outpatient Appreciate Wound care recommendations Spoke to podiatry Dr. Chaves so the phone who suggested that he can weight bear. Patient OR cultures growing staph aureus. We will follow up with final cultures. ID is on board. Patient has been informed the same information. Follow up with gen surg as an outpatient for possible hernia intervention Diet: Regular DVT ppx: Warfarin Code: DNR/I Problem List: 1. C. difficile colitis 2. Ulcer of left lower extremity Pain Ratin Pain Location: none Pain Goal: Remain pain free Pain Plan: tylenol Tomorrow's Labs & Rationales: gabe Bernal MD,[facility] 08/29/17 1355: Attending MD Review Statement Attending Statement Attending MD Statement: examined this patient, discuss w/resident/PA/UPPER LEATHER CUTTER, agreed w/resident/PA/UPPER LEATHER CUTTER, reviewed EMR data (avail), discussed with nursing, discussed with case mgmt, reviewed images, amended to note Attending Assessment/Plan: Patient seen and examined, overall diarrhea is better. Leukocytosis has improved. His wound culture from debridement growing multiple organisms. Patient has a wound VAC on. Patient was afebrile. The of consulted infectious disease and Dr. Dallas recommends starting the patient on ceftaz. Patient will be started on ceftaz and we need to discuss with podiatry and infectious disease about the duration of antibiotics and continued use of antibiotics. Continue by mouth vancomycin and cholestyramine. Patient continued to work with physical therapy. He does have therapeutic INR today please dose Coumadin as per his home dose and recheck INR in the morning.
[2017-08-29 10:21] LABS: ABSOLUTE BASOPHIL COUNT 0 /CUMM (0.0-0.2); ABSOLUTE EOSINOPHIL COUNT 0.3 /CUMM (0.0-0.7); ABSOLUTE GRANULOCYTE CT 7.6 /CUMM (1.4-6.5); ABSOLUTE LYMPH COUNT 1.8 /CUMM (1.2-3.4); ABSOLUTE MONOCYTE COUNT 0.9 /CUMM (0.10-0.60); BASOPHIL % 0.4 % (0.0-2.0); MEAN CORPUSCULAR HGB 31.8 PG (27.0-31.0); MEAN CORPUSCULAR HGB CONC 32.4 G/DL (33.0-37.0); MEAN CORPUSCULAR VOLUME 98.1 FL (80.0-94.0); PLATELET COUNT 315 /CUMM (130-400); PT 25.3 SEC (9.4-12.5); RBC DISTRIBUTION WIDTH 14.7 % (11.5-14.5); RED BLOOD CELL CT 4.14 /CUMM (4.70-6.10); WHITE BLOOD CELL COUNT 10.7 /CUMM (4.8-10.8)
[2017-08-29 10:59] LABS: HEMATOCRIT 40.7 % (42-52)
--- NOTE | 2017-08-29 13:00 | Cons- Infect Disease ---
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 difficile diarrhea. The patient was admitted to the hospital on August 23 after having a 3 day history of watery diarrhea. According to the patient patient's most recent antibiotic treatment was Augmentin prescribed on July 26, 2017. Upon admission the patient was afebrile with an elevated white blood cell count which peaked at 15,000 on the second day of admission. The patient states that he has persistent diarrhea since admission. Patient has been treated with oral vancomycin since admission and recently started on cholestyramine. He underwent surgical debridement on August 27 where his left necrotic lesion was debrided. The August 27 intraoperative cultures are now growing Pseudomonas, Klebsiella, enterococcus and staph coag negative. The patients only complaint is diarrhea which he states occurs every hour on the hour. Allergies/Medications Allergies: Coded Allergies: codeine (Intermediate, SHAKING 10/29/15) Home Med List: Acetaminophen (Tylenol) 325 MG TABLET 650 MG PO Q8P PRN PAIN SCALE 7-10 ( SEVERE) Cod Liver Oil/Zinc Oxide (Desitin Diaper Rash 40% Paste) 28 GM PASTE..G. 1 KRISTA TOP BID Diaper rash Collagenase Clostridium Hist. (Santyl) 30 GM OINT...G. 1 KRISTA TOP ONCE left lower leg ulcer Docusate Sodium 100 MG CAPSULE 100 MG PO BID CONASTIPATION Fentanyl 25 MCG/HR TDM 1 PATCH TOP Q72H PAIN (Reported) Loperamide HCl (Loperamide) 2 MG TABLET 1 TAB PO Q4 DIARRHEA Risedronate Sodium (Actonel) 35 MG TABLET 1 TAB PO QW BONES (Reported) Sennosides/Docusate Sodium (Senna-Time S Tablet) 8.6 MG-50 MG TABLET 187 MG PO AT BEDTIME PRN CONSTIPATION Vitamin A & D (Vitamin A & D Ointment) 56.7 GM OINT...G. 1 KRISTA TOP BID Diaper rash Warfarin Sodium (Coumadin) 3 MG TABLET 1 TAB PO DAILY POST OP AND AFIB ( Reported) INR BETWEEN 2-3 Current Medications: Current Medications Sig/Lew Start time Last Medication Dose Route Stop Time Status Admin Acetaminophen 650 MG .STK-MED ONE 08/29 0408 DC PO 08/29 0409 Acetaminophen 650 MG Q8P PRN 08/22 1415 AC 08/29 PO 0409 Calcium Carbonate 500 MG DAILY 08/28 1114 AC 08/29 PO 0944 Cholestyramine Resin 1 PAC 0800,2000 08/26 0940 AC 08/29 PO 0800 Furosemide 20 MG ONCE ONE 08/28 1515 DC 08/28 IV 08/28 1516 1640 Ondansetron HCl 4 MG Q8P PRN 08/22 1415 AC IV Vancomycin HCl 125 MG Q6H 08/23 1600 AC 08/29 PO 09/02 1001 0947 Vitamin A/Vitamin D 1 KRISTA BID 08/22 2100 AC 08/29 TOP 0944 Zinc Oxide 1 KRISTA BID 08/22 2100 AC 08/29 TOP 0945 Past History Travel History Traveled to [place] past 21 day No Medical History Blood Transfusion Hx: Yes Neurological: NONE EENT: NONE Cardiovascular: AFIB Respiratory: NONE Gastrointestinal: constipation, L INGUINAL HERNIA Hepatic: NONE Renal: NONE Musculoskeletal: osteoarthritis Psychiatric: NONE Endocrine: NONE Blood Disorders: NONE Cancer(s): NONE WET MIXER/Reproductive: NONE History of MRSA: No History of VRE: No History of CDIFF: Yes Isolation History: Contact Surgical History Surgical History: non-contributory Family History Relations & Conditions If Any: Relation not specified for: *No pertinent family history Psychosocial History Where Do You Live? Home Who Do You Live With? self Services at Home: None Primary Language: Kuwaiti Smoking Status: Never Smoked Functional Ability ADLs Independent: dressing, eating, toileting, bathing. Ambulation: cane IADLs Independent: shopping, housework, finances, food prep, telephone, transportation , medication admin. Review of Systems Review of Systems Constitutional: Reports: no symptoms. EENTM: Reports: no symptoms. Cardiovascular: Reports: no symptoms. Respiratory: Reports: no symptoms. GI: Reports: diarrhea. Genitourinary: Reports: no symptoms (Hernia). Musculoskeletal: Reports: no symptoms. Exam & Diagnostic Data Last 24 Hrs of Vital Signs/I&O Vital Signs Date Time Temp Pulse Resp B/P B/P Pulse O2 O2 Flow FiO2 Mean Ox Delivery Rate 08/29 0635 98.2 69 18 112/66 95 08/28 2119 97.4 75 18 122/62 95 Room Air Intake & Output 08/29 1600 08/29 0800 08/29 0000 Intake Total 120 320 Output Total 400 300 Balance -280 20 Intake, IV 20 Intake, Oral 120 300 Number 3 0 Bowel Movements Output, Urine 400 300 Physical Exam General Appearance: well developed/nourished, no apparent distress, alert, awake Head: atraumatic Eyes: Bilateral: PERRL, EOMI. Ears, Nose, Throat: normal pharynx Neck: normal inspection, supple Respiratory: normal breath sounds, lungs clear Cardiovascular: regular rate/rhythm Gastrointestinal: abnormal bowel sounds Skin: Lt ankle clean and dressed Last 24 Hours of Lab Results: Laboratory Tests 08/29 0914 Chemistry Sodium (137 - 145 mmol/L) 143 Potassium (3.5 - 5.1 mmol/L) 4.0 Chloride (98 - 107 mmol/L) 103 Carbon Dioxide (22 - 30 mmol/L) 27 Anion Gap (5 - 16) 12 BUN (9 - 20 mg/dL) 17 Creatinine (0.7 - 1.2 mg/dL) 0.8 Estimated GFR (>60 ml/min) > 60 BUN/Creatinine Ratio (7 - 25 %) 21.3 Coagulation PT (9.4 - 12.5 SEC) 25.3 H INR (0.90 - 1.17) 2.30 H Hematology CBC w Diff NO MAN DIFF REQ WBC (4.8 - 10.8 /CUMM) 10.7 RBC (4.70 - 6.10 /CUMM) 4.14 L Hgb (14.0 - 18.0 G/DL) 13.2 L Hct (42 - 52 %) 40.7 L MCV (80.0 - 94.0 FL) 98.1 H MCH (27.0 - 31.0 PG) 31.8 H MCHC (33.0 - 37.0 G/DL) 32.4 L RDW (11.5 - 14.5 %) 14.7 H Plt Count (130 - 400 /CUMM) 315 MPV (7.4 - 10.4 FL) 8.0 Gran % (42.2 - 75.2 %) 71.0 Lymphocytes % (20.5 - 51.1 %) 17.2 L Monocytes % (1.7 - 9.3 %) 8.4 Eosinophils % (0 - 5 %) 3.0 Basophils % (0.0 - 2.0 %) 0.4 Absolute Granulocytes (1.4 - 6.5 /CUMM) 7.6 H Absolute Lymphocytes (1.2 - 3.4 /CUMM) 1.8 Absolute Monocytes (0.10 - 0.60 /CUMM) 0.9 H Absolute Eosinophils (0.0 - 0.7 /CUMM) 0.3 Absolute Basophils (0.0 - 0.2 /CUMM) 0 Last 24 Hours of Joshua Results: Microbiology Date/Time Procedure - Status Source Growth 08/27 1309 Gross Specimen Examination - RES EXTREMITIE PSEUDOMONAS AERUGINOSA KLEBSIELLA OXYTOCA ENTEROCOCCUS STAPH COAGULASE NEGATIVE 08/27 1309 Gram Stain - RES EXTREMITIE 08/27 1306 Culture & Sensitivity - CAN EXTREMITIE Cancelled: CM 08/27 1306 Gram Stain - CAN EXTREMITIE Cancelled: OE. 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 difficile diarrhea. The patient was admitted to the hospital on August 23 after having a 3 day history of watery diarrhea. According to the patient patient's most recent antibiotic treatment was Augmentin prescribed on July 26, 2017. Upon admission the patient was afebrile with an elevated white blood cell count which peaked at 15,000 on the second day of admission. The patient states that he has persistent diarrhea since admission. Patient has been treated with oral vancomycin since admission and recently started on cholestyramine. He underwent surgical debridement on August 27 where his left necrotic lesion was debrided. The August 27 intraoperative cultures are now growing Pseudomonas, Klebsiella, enterococcus and staph coag negative. Even though the patient has persistent C. difficile he remains afebrile and his white blood cell count has normalized. He has multiple organisms in his ulcer. The extent of debridement is unclear however I would start Ceptaz for underlying osteomyelitis. This is very concerning considering patient has persistent C. difficile. Will need to discuss with Dr. Yu the extent of the debridement. Suggestion: 1. Continue vancomycin and cholestyramine for C. difficile 2. Start ceftaz for polymicrobial lower extremity infection Consult Acknowledgment - Thank you for your consult request.
[2017-08-29 14:27] VITALS: BP 116/70
[2017-08-29 22:43] VITALS: BP 132/80
[2017-08-30 06:01] VITALS: BP 140/90
[2017-08-30 08:10] LABS: ABSOLUTE BASOPHIL COUNT 0 /CUMM (0.0-0.2); ABSOLUTE EOSINOPHIL COUNT 0.4 /CUMM (0.0-0.7); ABSOLUTE GRANULOCYTE CT 5.8 /CUMM (1.4-6.5); ABSOLUTE LYMPH COUNT 1.8 /CUMM (1.2-3.4); BASOPHIL % 0.5 % (0.0-2.0); EOSINOPHIL % 4.6 % (0-5); GRANULOCYTE % 64.5 % (42.2-75.2); MEAN CORPUSCULAR HGB 31.9 PG (27.0-31.0); MEAN CORPUSCULAR HGB CONC 32.5 G/DL (33.0-37.0); MEAN CORPUSCULAR VOLUME 98.1 FL (80.0-94.0); MEAN PLATELET VOLUME 7.9 FL (7.4-10.4); PLATELET COUNT 288 /CUMM (130-400); RBC DISTRIBUTION WIDTH 14.6 % (11.5-14.5); RED BLOOD CELL CT 3.77 /CUMM (4.70-6.10); WHITE BLOOD CELL COUNT 9.1 /CUMM (4.8-10.8)
[2017-08-30 08:16] LABS: PT 26.4 SEC (9.4-12.5)
--- NOTE | 2017-08-30 08:23 | PN- Housestaff ---
Osiel Zapata 08/30/17 0823: Subjective Follow-up For: #Colitis #Left lower extremity ulcer s/p debridement PD 3 #Scrotal edema Subjective: Patient reports frequent bowel movements but formed stools. He also reports L ankle pain 7/10 in severity not controlled with Tylenol. Denies nausea, vomiting , food intolerance or urinary symptoms Review of Systems Constitutional: Reports: see HPI. Objective Last 24 Hrs of Vital Signs/I&O Vital Signs Date Time Temp Pulse Resp B/P B/P Pulse O2 O2 Flow FiO2 Mean Ox Delivery Rate 08/30 0601 97.9 72 20 140/90 95 08/29 2243 97.9 79 20 132/80 94 Room Air 08/29 1427 97.9 64 16 116/70 96 Room Air Intake & Output 08/30 1600 08/30 0800 08/30 0000 Intake Total 120 110 Output Total 100 150 100 Balance -100 -30 10 Intake, IV 20 10 Intake, Oral 100 100 Number 2 Bowel Movements Output, Urine 100 150 100 Physical Exam General Appearance: Alert, Oriented X3, Cooperative, No Acute Distress Cardiovascular: Regular Rate, Normal S1, Normal S2 Lungs: Clear to Auscultation, Normal Air Movement Abdomen: Normal Bowel Sounds, Soft, No Tenderness Extremities: L ankle with dressing intact and serosanguinous drainage Current Medications: Current Medications Sig/Lew Start time Last Medication Dose Route Stop Time Status Admin Acetaminophen 1,000 MG ONCE ONE 08/29 1600 DC 08/29 N/A 1 UNIT IV 08/29 1614 1600 Acetaminophen 650 MG Q8P PRN 08/22 1415 AC 08/30 PO 0346 Calcium Carbonate 500 MG DAILY 08/28 1114 AC 08/30 PO 1058 Ceftazidime 1,000 MG Q12H 08/29 1400 AC 08/30 IV 0202 Cholestyramine Resin 1 PAC 0800,2000 08/26 0940 AC 08/30 PO 1058 Ondansetron HCl 4 MG Q8P PRN 08/22 1415 AC IV Vancomycin HCl 125 MG Q6H 08/23 1600 AC 08/30 PO 09/02 1001 1058 Vitamin A/Vitamin D 1 KRISTA BID 08/22 2100 AC 08/30 TOP 1059 Warfarin Sodium 3 MG COUMADIN 1700 ONE 08/30 1700 UNVr PO 08/30 1701 Warfarin Sodium 3 MG COUMADIN 1700 ONE 08/29 1700 DC 08/29 PO 08/29 1701 1600 Zinc Oxide 1 KRISTA BID 08/22 2100 AC 08/30 TOP 1058 Last 24 Hrs of Lab/Joshua Results Last 24 Hrs of Labs/Mics: Laboratory Tests 08/30/17 0700: PT 26.4 H, INR 2.40 H, CBC w Diff NO MAN DIFF REQ, RBC 3.77 L, MCV 98.1 H, MCH 31.9 H, MCHC 32.5 L, RDW 14.6 H, MPV 7.9, Gran % 64.5, Lymphocytes % 19.4 L, Monocytes % 11.0 H, Eosinophils % 4.6, Basophils % 0.5, Absolute Granulocytes 5.8, Absolute Lymphocytes 1.8, Absolute Monocytes 1.0 H, Absolute Eosinophils 0.4, Absolute Basophils 0 Assessment/Plan Assessment: Mr. 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 Renal US showed cysts and testicular US showed hernias Problem list: #Colitis #Left lower extremity ulcer s/p debridement - PD 3 #Scrotal edema Plan: Continue by mouth Vancomycin for C.difficle. Continue Cholestyramine 2 hours before and after Vancomycin Will dose Warfarin as per INR Chest x-ray taken yesterday showed bilateral small pleural effusion, given IV Lasix Appreciate Urology recommendations, patient will follow up as an outpatient Appreciate Wound care recommendations Patient weight-bearing as per Podiatry OR cultures growing multiple bacteria incl staph aureus, psuedomonas. Await final cultures. Appreciate ID recommendations Follow up with gen surg as an outpatient for possible hernia intervention Diet: Regular DVT ppx: Warfarin Code: DNR/I Problem List: 1. C. difficile colitis 2. Ulcer of left lower extremity Pain Ratin Pain Location: L ankle Pain Goal: Pain 4 or less Pain Plan: Tylenol, Motrin Tomorrow's Labs & Rationales: none Aline Bernal MD 08/30/17 1332: Attending MD Review Statement Attending Statement Attending MD Statement: examined this patient, discuss w/resident/PA/TECHNICAL ASST, agreed w/resident/PA/TECHNICAL ASST, reviewed EMR data (avail), discussed with nursing, discussed with case mgmt, reviewed images, amended to note Attending Assessment/Plan: Patient seen and examined, still having diarrhea but much better. WBC count has normalized. Wound culture from the left ankle debridement growing multiple organisms. Patient was started on IV ceftaz after infectious disease consultation. Vital Signs Date Time Temp Pulse Resp B/P B/P Pulse O2 O2 Flow FiO2 Mean Ox Delivery Rate 08/30 1205 Room Air Room Air 08/30 0601 97.9 72 20 140/90 95 08/29 2243 97.9 79 20 132/80 94 Room Air 08/29 1427 97.9 64 16 116/70 96 Room Air on exam; aox3, nad. cv; s1,s2, rrr resp; clear abd; soft, nt, bs+ ext; no edema,. left ankle wrapped in Sean wrap and has a wound VAC on. Laboratory Tests 08/30 0700 Coagulation PT (9.4 - 12.5 SEC) 26.4 H INR (0.90 - 1.17) 2.40 H Hematology CBC w Diff NO MAN DIFF REQ WBC (4.8 - 10.8 /CUMM) 9.1 RBC (4.70 - 6.10 /CUMM) 3.77 L Hgb (14.0 - 18.0 G/DL) 12.0 L Hct (42 - 52 %) 37.0 L MCV (80.0 - 94.0 FL) 98.1 H MCH (27.0 - 31.0 PG) 31.9 H MCHC (33.0 - 37.0 G/DL) 32.5 L RDW (11.5 - 14.5 %) 14.6 H Plt Count (130 - 400 /CUMM) 288 MPV (7.4 - 10.4 FL) 7.9 Gran % (42.2 - 75.2 %) 64.5 Lymphocytes % (20.5 - 51.1 %) 19.4 L Monocytes % (1.7 - 9.3 %) 11.0 H Eosinophils % (0 - 5 %) 4.6 Basophils % (0.0 - 2.0 %) 0.5 Absolute Granulocytes (1.4 - 6.5 /CUMM) 5.8 Absolute Lymphocytes (1.2 - 3.4 /CUMM) 1.8 Absolute Monocytes (0.10 - 0.60 /CUMM) 1.0 H Absolute Eosinophils (0.0 - 0.7 /CUMM) 0.4 Absolute Basophils (0.0 - 0.2 /CUMM) 0 A/P; 87 y/o M with pmh sig for atrial fibrillation, osteoporosis, 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 C. difficile results were positive on stool culture. Diarrhea improved on oral vancomycin as well as Questran. Patient also underwent debridement of left ankle wound with Dr. Yu on 08/27/2017. Wound cultures are growing multiple organisms. We consulted infectious disease Dr. Nunez over the weekend and he recommended to start the patient on ceftaz. We'll continue total of 10-14 day course of oral vancomycin for C. difficile. We will discuss with infectious disease further about the treatment for this wound. Patient has a wound VAC on. INR therapeutic and I agree with 3 mg of Coumadin tonight. Patient needs to go to rehabilitation. He can be discharged to rehabilitation once bed is available and after we clarify antibiotics with infectious disease.
[2017-08-30 14:43] VITALS: BP 122/60
--- NOTE | 2017-08-30 15:13 | PN- Infect Dx ---
Subjective Subjective: Afebrile. He still complains of diarrhea though he has been having formed stools. He notes no pain in his left ankle. Objective Last 24 Hrs of Vital Signs/I&O Vital Signs Date Time Temp Pulse Resp B/P B/P Pulse O2 O2 Flow FiO2 Mean Ox Delivery Rate 08/30 1443 98.6 80 18 122/60 95 Room Air 08/30 1205 Room Air Room Air 08/30 0601 97.9 72 20 140/90 95 08/29 2243 97.9 79 20 132/80 94 Room Air Intake & Output 08/30 1600 08/30 0800 08/30 0000 Intake Total 120 110 Output Total 100 150 100 Balance -100 -30 10 Intake, IV 20 10 Intake, Oral 100 100 Number 2 Bowel Movements Output, Urine 100 150 100 Physical Exam Other Physical Findings: He appears comfortable in no acute distress Lungs are clear Heart regular rhythm with no murmur Abdomen is soft, nontender with positive bowel sounds Extremities left ankle wound VAC in place Results Last 24 Hours of Lab Results: Laboratory Tests 08/30 0700 Coagulation PT (9.4 - 12.5 SEC) 26.4 H INR (0.90 - 1.17) 2.40 H Hematology CBC w Diff NO MAN DIFF REQ WBC (4.8 - 10.8 /CUMM) 9.1 RBC (4.70 - 6.10 /CUMM) 3.77 L Hgb (14.0 - 18.0 G/DL) 12.0 L Hct (42 - 52 %) 37.0 L MCV (80.0 - 94.0 FL) 98.1 H MCH (27.0 - 31.0 PG) 31.9 H MCHC (33.0 - 37.0 G/DL) 32.5 L RDW (11.5 - 14.5 %) 14.6 H Plt Count (130 - 400 /CUMM) 288 MPV (7.4 - 10.4 FL) 7.9 Gran % (42.2 - 75.2 %) 64.5 Lymphocytes % (20.5 - 51.1 %) 19.4 L Monocytes % (1.7 - 9.3 %) 11.0 H Eosinophils % (0 - 5 %) 4.6 Basophils % (0.0 - 2.0 %) 0.5 Absolute Granulocytes (1.4 - 6.5 /CUMM) 5.8 Absolute Lymphocytes (1.2 - 3.4 /CUMM) 1.8 Absolute Monocytes (0.10 - 0.60 /CUMM) 1.0 H Absolute Eosinophils (0.0 - 0.7 /CUMM) 0.4 Absolute Basophils (0.0 - 0.2 /CUMM) 0 Last 24 Hours of Joshua Results: Left ankle soft tissue culture from the OR August 27 positive for Pseudomonas, Klebsiella, Enterococcus, coag negative Staph and diphtheroids Assessment/Plan ID Impression: Stable, with temperatures and white blood cell count normal, now on Ceftazidime, begun yesterday in response to the OR culture of his left ankle ulcer obtained 3 days ago at the time of his debridement. The significance of this culture is unclear and, given his current C. difficile infection, feel that antibiotics should be avoided if at all possible. This has been discussed with Dr. Yu who concurs and does not feel that he requires antibiotics. He remains on p.o. Vancomycin, now Day 8 of treatment for C. difficile, with stools now formed. Suggestion: 1. Discontinue Ceftazidime 2. Continue p.o. Vancomycin to complete a 10 degree this denies the wrist. Day course
[2017-08-30 22:07] VITALS: BP 98/74
[2017-08-31 06:46] VITALS: BP 122/76
--- NOTE | 2017-08-31 07:24 | PN- Housestaff ---
Osiel Zapata 08/31/17 0723: Subjective Follow-up For: #Colitis #Left lower extremity ulcer s/p debridement #Scrotal edema Subjective: Patient offers no complaints. He reports his diarrhea is improving. Denies nausea, vomiting, abdominal pain or urinary symptoms Review of Systems Constitutional: Reports: see HPI. Objective Last 24 Hrs of Vital Signs/I&O Vital Signs Date Time Temp Pulse Resp B/P B/P Pulse O2 O2 Flow FiO2 Mean Ox Delivery Rate 08/31 0646 97.5 86 20 122/76 95 Room Air 08/30 2207 98.0 85 20 98/74 95 Room Air 08/30 1443 98.6 80 18 122/60 95 Room Air 08/30 1205 Room Air Room Air Intake & Output 08/31 1600 08/31 0800 08/31 0000 Intake Total 150 Output Total Balance 150 Intake, Oral 150 Number 2 1 2 Bowel Movements Physical Exam General Appearance: Alert, Oriented X3, Cooperative, No Acute Distress Cardiovascular: Regular Rate, Normal S1, Normal S2 Lungs: Clear to Auscultation, Normal Air Movement Abdomen: Normal Bowel Sounds, Soft, No Tenderness Current Medications: Current Medications Sig/Lew Start time Last Medication Dose Route Stop Time Status Admin Acetaminophen 650 MG Q8P PRN / 1415 AC 08/30 PO 0346 Calcium Carbonate 500 MG DAILY 08/28 1114 AC 08/31 PO 0824 Ceftazidime 1,000 MG Q12H 08/29 1400 DC 08/30 IV 0202 Cholestyramine Resin 1 PAC 0800,2000 08/26 0940 AC 08/31 PO 0744 Ibuprofen 600 MG Q6P PRN 08/30 1200 AC PO Ondansetron HCl 4 MG Q8P PRN / 1415 AC IV Tramadol HCl 50 MG Q6P PRN / 1100 AC 08/31 PO 1119 Vancomycin HCl 125 MG Q6H /07 1600 AC / PO 09/02 1001 1012 Vitamin A/Vitamin D 1 KRISTA BID / 2100 AC 08/31 TOP 0747 Warfarin Sodium 4 MG 1700 05/15 1700 AC PO 08/31 2359 Warfarin Sodium 3 MG COUMADIN 1700 ONE 08/30 1700 DC 08/30 PO 08/30 1701 1654 Zinc Oxide 1 KRISTA BID / 2100 AC 08/31 TOP 0748 Last 24 Hrs of Lab/Joshua Results Last 24 Hrs of Labs/Mics: Laboratory Tests 08/31/17 1102: PT 21.2 H, INR 1.93 H 08/31/17 1043: PT Cancelled, INR Cancelled Assessment/Plan Assessment: Mr. 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 Renal US showed cysts and testicular US showed hernias Problem list: #Colitis #Left lower extremity ulcer s/p debridement - PD 3 #Scrotal edema Plan: Continue by mouth Vancomycin for C.difficle. Continue Cholestyramine 2 hours before and after Vancomycin Will dose Warfarin as per INR Appreciate Urology recommendations, patient will follow up as an outpatient Appreciate Wound care recommendations Patient weight-bearing as per Podiatry OR cultures growing multiple bacteria incl staph aureus, psuedomonas. Appreciate ID recommendations Follow up with gen surg as an outpatient for possible hernia intervention Diet: Regular DVT ppx: Warfarin Code: DNR/I Dispo: Discharge to [facility] Problem List: 1. C. difficile colitis Pain Ratin Pain Location: L ankle Pain Goal: Pain 4 or less Pain Plan: Tramadol Tomorrow's Labs & Rationales: none Aline Bernal MD 08/31/17 1339: Attending MD Review Statement Attending Statement Attending MD Statement: examined this patient, discuss w/resident/PA/PHARMACIST IN CHARGE, agreed w/resident/PA/PHARMACIST IN CHARGE, reviewed EMR data (avail), discussed with nursing, discussed with case mgmt, reviewed images, amended to note Attending Assessment/Plan: Patient seen and examined, overall doing better. Still having diarrhea but now the stool is soft in consistency and not loose. Patient's Emend patches disease yesterday and they recommended to stop the IV ceftaz. Patient otherwise has been kept on oral Vanco mycin. We'll complete a total of 10 day course of oral vancomycin. Patient has a bed available at rehabilitation today and he is medically stable for discharge to rehabilitation on oral vancomycin to complete the course. He has a wound VAC and should follow-up with Dr. Yu as an outpatient.
--- NOTE | 2017-08-31 10:46 | Patient Discharge Instructions ---
Discharge Instructions General Discharge Information You were seen/treated for: Clostridium Difficile You had these procedures: Debridement Special Instructions: Follow up with your PCP within 1-2 weeks of discharge Follow up with Podiatry within 1 week of discharge Continue Vancomycin and Cholestyramine for 2 more days Check your INR on 09/02/17 and adjust Coumadin Diet Recommended Diet: Regular Activity Full Activity/No Limits: Yes Acute Coronary Syndrome Inclusion Criteria At DC or during hospital stay patient has or had the following: ACS DIAGNOSIS No Discharge Core Measures Meds if any: Prescribed or Continued at Discharge Meds if any: NOT Prescribed or Continued at Discharge Congestive Heart Failure Inclusion Criteria At DC or during hospital stay patient has or had the following: CHF DIAGNOSIS No Discharge Core Measures Meds if any: Prescribed or Continued at Discharge Meds if any: NOT Prescribed or Continued at Discharge Cerebrovascular accident Inclusion Criteria At DC or during hospital stay patient has or had the following: CVA/TIA Diagnosis No Discharge Core Measures Meds if any: Prescribed or Continued at Discharge Meds if any: NOT Prescribed or Continued at Discharge Venous thromboembolism Inclusion Criteria VTE Diagnosis No VTE Type NONE VTE Confirmed by (Test) NONE Discharge Core Measures - Per Current guidelines, there needs to be overlap - treatment for the first 5 days of Warfarin therapy. - If discharged on Warfarin prior to 5 days of - overlap therapy, the patient will need to be - assessed for post discharge needs including - *Post discharge parental anticoagulation - *Warfarin and/or parental anticoagulation education - *Follow up date to check INR post discharge At least 5 days overlap therapy as Inpatient No Meds if any: Prescribed or Continued at Discharge Note: Overlap Therapy is Warfarin and Anticoagulant Meds if any: NOT Prescribed or Continued at Discharge
[2017-08-31] MEDS ORDERED: TRAMADOL HCL50 M1 PO (10:49)
[2017-08-31] MEDS ORDERED: VANCOMYCIN HCL5 G1 PO (10:53)
[2017-08-31] MEDS ORDERED: CHOLESTYRAMINE L4 GM PO (10:53)
[2017-08-31 11:19] LABS: PT 21.2 SEC (9.4-12.5)
[2017-08-31 12:13] VITALS: BP 122/76
== END 2017-08-31 14:17 | DRG 571 ==
LOC: ERH 10:02 → ERHI 13:14 → 2NB 13:14 → CMPBEDREQ 15:45 → 2NB 15:57 → ENRESERV 16:25 → ENTRNSPT 17:16 → EDTRNSPT 17:24 → EDTRNSPTSTS 17:24 → 2NB 17:30 → CMPTRNSPT 17:44 → 2NB 08-23 07:49 → ENTRNSPT 08-27 14:14 → EDTRNSPTSTS 08-27 14:31 → EDTRNSPT 08-27 14:31 → CMPTRNSPT 08-27 15:00 → 2NB 08-27 15:52 → ENPENDDIS 08-31 10:56 → 2NB 08-31 14:17
PROVIDERS: Internal Medicine; Internal Medicine Hematology & Oncology; Student in an Organized Health Care Education/Training Program
PROC: 2W1TX6Z Compression of Left Foot using Pressure Dressing (ICD-10-PCS; principal; 2017-08-27)
PROC: 3E0T3BZ Introduction of Anesthetic Agent into Peripheral Nerves and Plexi, Percutaneous Approach (ICD-10-PCS; principal; 2017-08-27)
PROC: 0JBR0ZZ Excision of Left Foot Subcutaneous Tissue and Fascia, Open Approach (ICD-10-PCS; principal; 2017-08-27)
DX: L97.328 Non-pressure chronic ulcer of left ankle with other specified severity (principal); A04.72 Enterocolitis due to Clostridium difficile, not specified as recurrent; K52.1 Toxic gastroenteritis and colitis; I48.91 Unspecified atrial fibrillation; L08.9 Local infection of the skin and subcutaneous tissue, unspecified; Z79.01 Long term (current) use of anticoagulants; N28.89 Other specified disorders of kidney and ureter; K40.90 Unilateral inguinal hernia, without obstruction or gangrene, not specified as recurrent; N21.0 Calculus in bladder; I87.8 Other specified disorders of veins; B95.7 Other staphylococcus as the cause of diseases classified elsewhere; B96.5 Pseudomonas (aeruginosa) (mallei) (pseudomallei) as the cause of diseases classified elsewhere; Z88.5 Allergy status to narcotic agent; Z66 Do not resuscitate; N50.89 Other specified disorders of the male genital organs; E87.6 Hypokalemia; E83.42 Hypomagnesemia; B95.2 Enterococcus as the cause of diseases classified elsewhere; T36.95XA Adverse effect of unspecified systemic antibiotic, initial encounter
CPT/HCPCS: 2NBP; 87070; 87075; 87184; 36415; 36592; 71046; 74177; 76775; 81001; 82436; 87045; 87147; 93005; 93010; 97110-GO; 97161-GP; 97530-GO; J0131; J0713; J1100; J1940; J2001; J2405; J7042